=== PATIENT | male | born 1955 | race Caucasian/White ===

== ENCOUNTER 2025-06-10 10:47 | Outpatient (AMB) | payer MEDICARE, OTHER, SELFPAY ==
[2025-06-10 10:49] VITALS: BP 144/82; PULSE 86; O2SAT 97; BMI 34.5
--- NOTE | 2025-06-10 10:49 | A.OFFVIS_ITS ---
Vital Signs 06/10/25 10:49 Height 5 ft 8 in Weight 227 lb 1.218 oz BMI 34.5 BP 144/82 H Blood Pressure Location Lt brachial Position Sitting Pulse 86 Pulse Oximetry (%) 97 Oxygen Delivery Method Room Air Intake Visit Reasons: Atrophy of thyroid Intake Note: New patient externally referred by PCP for Atrophy of Thyroid. Architectural Technologist Required: No Accompanied by: Spouse Allergies No Known Allergies Allergy (Verified 06/10/25 10:55) Medication List - Last Reconciled 06/10/25 by Janes Weber MD aspirin 81 mg PO DAILY coenzyme Q10 (Co Q-10) 10 mg PO TID levothyroxine (Synthroid) 75 mcg PO DAILY multivit with min-folic acid 80 mcg (Centrum MultiGummies Men) 1 tab PO DAILY omeprazole 40 mg PO QAM pravastatin 80 mg PO DAILY valsartan-hydrochlorothiazide 320-12.5 mg 1 tab PO DAILY zinc acetate (Galzin) 25 mg PO DAILY HPI Comments Details: 69 YO Shane is seen in consultation at the request of his PCP for Hyothyroidism. First diagnosed with Hypothyroidism 10 yrs ago with labs revealing hypothyroidism. Currently using levothyroxine 75 ug for 4-5 yrs . Denies +fatigue, +weight gain, -cold intolerance, -dry skin, hair loss, - constipation. There is hx of hyperlipidemia . Denies obstructive sx of goiter . Denies consuming any kelp or seaweed. Denies taking amiodarone. Biotin: N family hx of children - hyperthyroidism and daughter has thyroid cancer - other daughters have Graves and Hashimotos Labs: The patient is a 69-year-old individual presenting for evaluation and management of hypothyroidism. The patient was diagnosed with hypothyroidism approximately 10 years ago and has been on levothyroxine therapy since then. The current dose of levothyroxine is 0.75 mg, which the patient has been taking for the past four to five years. The patient reports difficulty losing weight despite regular exercise and experiences persistent fatigue, which worsened after zac COVID-19. There is no personal history of thyroid nodules or enlargement, and the patient denies any symptoms such as feeling cold, dry skin, or changes in bowel movements. The patient has a significant family history of thyroid disorders, including hyperthyroidism and thyroid cancer in the patient's children. The patient denies any family history of thyroid issues prior to their generation. The patient suspects having sleep apnea due to symptoms of snoring and fatigue, and a sleep study has been recommended. [facility] Medical History (Updated 06/10/25 @ 10:53 by Janes Weber MD) Hypothyroidism Surgical History (Updated 05/28/25 @ 09:44 by RITO Sandoval) Hx of sinus surgery Hx laparoscopic cholecystectomy Hx of arthroscopy of shoulder History of arthroplasty of right knee Family History (Updated 05/28/25 @ 09:46 by RITO Sandoval) Mother No problems noted. Father No problems noted. Social History (Updated 05/28/25 @ 09:45 by RITO Sandoval) Patient Tobacco Use Status: Never used Tobacco Physical Exam Vital Signs: Last Vital Signs Pulse 86 06/10/25 10:49 BP 144/82 H 06/10/25 10:49 Pulse Ox 97 06/10/25 10:49 Oxygen Delivery Method Room Air 06/10/25 10:49 BMI result Body Mass Index 34.5 Const Other: Thyroid gland is normal size weighs about 15 g. 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 He appears to be clinically and biochemically euthyroid on mcg of levothyroxine. Plan is to continue the current therapy. 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 We will check anti-peroxidase antibodies to confirm Joe's thyroiditis. We will also get a thyroid ultrasound in light of the family history of thyroid cancer. If antibodies are negative an ultrasound shows a normal-appearing thyroid, we could consider holding levothyroxine 1. Hypothyroidism The patient will continue on levothyroxine 0.75 mg daily. Thyroid antibodies will be checked to confirm Joe's thyroiditis, and an ultrasound is considered due to family history of thyroid cancer. During the consultation, I discussed the management of hypothyroidism with the patient, emphasizing the importance of maintaining the current levothyroxine dose. We reviewed the potential need for thyroid antibodies testing to confirm Joe's thyroiditis and considered an ultrasound due to the family history of thyroid cancer. I explained the symptoms of post-COVID syndrome and recommended a sleep study to evaluate for sleep apnea, which could be contributing to the patient's fatigue. We also discussed the stability of the patient's hyperlipidemia management with pravastatin. I advised the patient to follow up with their primary care provider for a sleep study referral and to monitor any changes in symptoms. - Continue taking levothyroxine 0.75 mg daily as prescribed. - Schedule a sleep study to evaluate for sleep apnea. - Follow up with primary care provider for further management and monitoring of symptoms. - The patient had an opportunity to ask questions regarding treatment plan. The patient expressed understanding and agreement with the above treatment plan. Patient was informed and verbally consented to the use of an ambient scribe for clinic note documentation during this visit. Orders: Orders US thyroid Today E03.9 - Hypothyroidism, unspecified Thyroid Peroxidase Antibodies Today E03.9 - Hypothyroidism, unspecified Medications: New Synthroid (levothyroxine) 75 mcg PO DAILY 30 tabs 5RF NS Coding Level of Care Code New Pt Level 4 (89008) Diagnoses Hypothyroidism E03.9
--- OUTSIDE RECORDS SUMMARY | 2025-06-10 16:17 | XMS_ITS | Encounter Summary ---
Author Organization [facility] Address [address] [place] [address] Care Team Providers Care Care Administrative Tech Name Role Phone Stephen Moore MD Primary Care Provider [phone] Reason for Referral * Radiology Services - New Request Specialty Diagnoses / Procedures Referred By Contac t Referred To Contact Procedures XR Spine/Sports Interventional Samuel Mccain MD [address] [address] [place] [address] Phone: tel: fax: Referral ID Status Reason Start Date Expiration Date V isits Requested Visits Authorized [id number] New Request 05/06/2025 05/06/2026 1 1 Encounter Details Date Type Department Care Team (Latest Contact Info) Description 05/06/2025 Prep For Surgery [facility] Physical Medicine and Rehabilitation - [facility] [address] [place] [phone] Samuel Mccain MD [address] [id number] [place], [place] [address] Lumbar facet arthropathy Social History Tobacco Use Types Packs/Day Years Used Date Smoking Tobacco: Never Smokeless Tobacco: Never Alcohol Use Standard Drinks/Week Comments Never 0 (1 standard drink = 0.6 oz pur e alcohol) Hunger Vital Sign Answer Date Recorded Within the past 12 months, y ou worried that your food would run out before you got the money to buy more. Never true 04/21/20 25 Within the past 12 months, t he food you bought just didn't last and you didn't have money to get more. Never true 04/21/2025 PRAPARE - Transportation Answer Date Re corded In the past 12 months, has l ack of transportation kept you from medical appointments or from getting medications? No 07/2024 In the past 12 months, has l ack of transportation kept you from meetings, work, or from getting things needed for daily living? No 04/21/2025 Housing Stability Vital Sign Answer Nick e Recorded In the last 12 months, was t here a time when you were not able to pay the mortgage or rent on time? No 04/21/2025 In the past 12 months, how m any times have you moved where you were living? 0 04/21/2025 At any time in the past 12 m onths, were you homeless or living in a nursing home (including now)? No 04/21/2025 Utilities Answer Date Recorded In the past 12 months has th e electric, gas, oil, or water company threatened to shut off services in your home? No 04/21/2025 Sex and Gender Information Value Date Recorded Sex Assigned at Not on file Legal Sex Male 4:02 PM EDT Gender Identity Not on file Sexual Orientation Not on file documented as of this encounter Plan of Treatment Upcoming Encounters Date Type Department Care Team (Late st Contact Info) Description 06/28/2025 11:00 AM EST Office Visit [facility] Orthopedics and Sports Medicine - [place] [id number], [facility] [address] [place] [address] Endy Armendariz MD [address] [place] [address] Scheduled Orders Name Type Priority Associated Diagnoses Order Schedule XR Spine/Sports Interventional Imaging Routine One time imaging for 1 Occurrences starting 05/06/2025 until 05/06/2025 Surgical Case Request: Medial Branch Block Lumbar/Sacral 1st & 2nd level, INJ PARAVERTEBRAL JOINT LUMBAR OR SACRAL 2ND LEVEL Surgical Case Request Routine Lumbar facet arthropathy Once for 1 Occurrences starting 05/06/2025 until 05/06/2025 documented as of this encounter Visit Diagnoses Diagnosis Lumbar facet arthropathy Lumbosacral spondylosis without myelopathy documented in this encounter Care Teams Care Administrative Tech Relationship Specialty Start Date End Date Stephen Moore MD [address] [facility] [address] [facility] [place] [address] PCP - General Family Medicine 04/14/25 documented as of this encounter
--- OUTSIDE RECORDS SUMMARY | 2025-06-10 16:17 | XMS_ITS | Clinical Summary ---
Author Organization [facility] Address [address] [place] [address] Care Team Providers Care Clerical Receptionist Name Role Phone Stephen Moore MD Primary Care Provider [phone] Allergies No known active allergies Medications valsartan-hydro CHLOROthiazide (DIOVAN-HCT) 320-12.5 MG Oral Tablet 1 tablet daily. 03/18/2025 Active montelukast (SINGULAIR) 10 MG Oral Tablet 03/30/2025 Acti ve pravastatin (PRAVACHOL) 80 MG Oral Tablet Take 80 mg by mouth daily. 03/18/2025 Active levothyroxine 75 MCG Oral Tablet Take 75 mcg by mouth. Active traMADol (ULTRAM) 50 MG Oral Tablet Take 1 (one) tablet by mouth every 8 hours as needed for pain. 21 tablet 04/29/2025 Active gabapentin (NEURONTIN) 100 MG Oral Capsule Take 1 (one) capsule by mouth 3 times daily for 30 days. 90 capsule 04/29/2025 Active aspirin 81 MG Oral Tablet Delayed Release by mouth. Acti ve Active Problems Problem Noted Date Diagnosed Date Lumbar facet arthropathy 05/06/2025 Lumbar radiculopathy 04/20/2025 Encounters Date Type Department Care Team Description 05/26/2025 11:30 AM EST - 05/26/2025 12:00 PM EST Surgery [facility] [address] [place] [address] Samuel Mccain MD Medial Branch Block Lumbar/Sacral 1st & 2nd level 05/26/2025 10:33 AM EST - 05/26/2025 12:27 PM EST Hospital Encounter [facility] [address] [place] [address] Samuel Mccain MD Discharge Disposition: Discharge to Home or Self Care 05/26/2025 7:16 AM EST - 05/26/2025 11:59 PM EST Hospital Encounter [facility] -- Fluoroscopy [address] [place] [address] Samuel Mccain MD Discharge Disposition: Discharge to Home or Self Care 05/07/[address] [facility] Physical Medicine and Rehabilitation - [facility] [address] [phone] Samuel Mccain MD Appointment 05/06/2025 Prep For Surgery [facility] Rehabilitation - [place] [phone] Samuel Mccain MD Lumbar facet arthropathy 05/06/2025 Orders Only [facility] Medicine [facility] Rehabilitation - [place] [phone] Samuel Mccain MD 04/29/2025 Telephone [facility] - [place] [address], [address] [place] [phone] Endy Armendariz MD Patient Call 04/29/[address] [facility] Physical Medicine and Rehabilitation - [facility] [address] [place], [place] [phone] Samuel Mccain MD Patient Call; Clinical or Medication Question/Inquiry 04/26/2025 Telephone [facility] - [address] [place] [phone] Endy Armendariz MD Medical Question/Inquiry 04/21/2025 2:30 PM EDT - 04/21/2025 3:00 PM EDT Surgery [facility] [address] [place] [address] Samuel Mccain MD Transforaminal - Lumbar or Sacral multiple levels 04/21/2025 1:34 PM EDT - 04/21/2025 3:44 PM EDT Hospital Encounter [facility] [address] [phone] Samuel Mccain MD Discharge Disposition: Discharge to Home or Self Care 04/21/2025 6:40 AM EDT - 04/21/2025 11:59 PM EDT Hospital Encounter [facility] -- Fluoroscopy [address] [phone] Samuel Mccain MD Discharge Disposition: Discharge to Home or Self Care 04/20/2025 10:00 AM EDT Office Visit [facility] Physical Medicine and Rehabilitation - [facility] [address] [place] [phone] Endy Armendariz MD Guju, Michael M., MD Lumbar facet arthropathy 04/19/2025 10:00 AM EDT Office Visit [facility] [address], [address] [place] [address] Endy Armendariz MD Foraminal stenosis of lumbar region; Lumbar radiculopathy - Left L3 and left L4; Facet arthritis of lumbar region; Chronic back pain greater than 3 months duration 04/15/2025 2:05 PM EDT - 04/15/2025 11:59 PM EDT Hospital Encounter [facility] - RADIOLOGY - MRI [address] [place] [address] Endy Armendariz MD Lumbar spondylosis; Left buttock pain; Facet arthropathy Discharge Disposition: Discharge to Home or Self Care 04/02/2025 11:00 AM EDT Ancillary Procedure [facility] Radiology - [address], [address] [place] [address] Endy Armendariz MD Lumbar spondylosis 04/02/2025 10:45 AM EDT Office Visit [facility] [address], [address] [place] [address] Endy Armendariz MD Lumbar spondylosis; Left buttock pain; Facet arthropathy from Last 3 Months Social History Tobacco Use Types Packs/Day Years Used Date Smoking Tobacco: Never Smokeless Tobacco: Never Tobacco Cessation:Counseling Given: Not Answered Alcohol Use Standard Drinks/Week Comments Never 0 (1 standard drink = 0.6 oz pur e alcohol) Hunger Vital Sign Answer Date Recorded Within the past 12 months, y ou worried that your food would run out before you got the money to buy more. Never true 05/26/20 25 Within the past 12 months, t he food you bought just didn't last and you didn't have money to get more. Never true 05/26/2025 PRAPARE - Transportation Answer Date Re corded In the past 12 months, has l ack of transportation kept you from medical appointments or from getting medications? No 11/2024 In the past 12 months, has l ack of transportation kept you from meetings, work, or from getting things needed for daily living? No 05/26/2025 Housing Stability Vital Sign Answer Nick e Recorded In the last 12 months, was t here a time when you were not able to pay the mortgage or rent on time? No 05/26/2025 In the past 12 months, how m any times have you moved where you were living? 0 05/26/2025 At any time in the past [address] [facility], were you homeless or living in a [place] facility (including now)? No 05/26/2025 Utilities Answer Date Recorded In the past 12 months has th e electric, gas, oil, or water company threatened to shut off services in your home? No 05/26/2025 Sex and Gender Information Value Date Recorded Sex Assigned at Not on file Legal Sex Male 4:02 PM EDT Gender Identity Not on file Sexual Orientation Not on file Last Filed Vital Signs Vital Sign Reading Time Taken Comments Blood Pressure 149/90 05/26/2025 12:07 PM EST Pulse 88 05/26/2025 12:07 PM EST Temperature 36.1 C (97 F) 05/26/2025 12:07 PM EST Respiratory Rate 14 05/26/2025 12:07 PM EST Oxygen Saturation 99% 05/26/2025 12:07 PM EST Inhaled Oxygen Concentration - - Weight 100.2 kg (221 lb) 04/20/2025 10:18 AM EDT Height 172.7 cm (5' 8 ) 04/20/2025 10:18 AM EDT Body Mass Index 33.6 04/20/2025 10:18 AM EDT Plan of Treatment Upcoming Encounters Date Type Department Care Team (Late st Contact Info) Description 06/28/2025 11:00 AM EST Office Visit [facility] Medical [facility] - [place] [address] [place] [address] Endy Armendariz MD [address] [place] [address] Health Maintenance Due Date Last Done Comments CT Colonography 1955 Colonoscopy 1955 Discussion 1955 FIT-Fecal Immunochemical Test 1955 FOBT-Fecal Occult Blood Test 1955 Hepatitis C Screening 1955 Lipid Profile 1955 PSA 1955 Prostate Cancer Screening 1955 Sigmoidoscopy 1955 DTaP,Tdap,and Td Vaccines (1 - Tdap) 1975 Pneumococcal Vaccine (50+ yrs) (1 of 1 - PCV) 2006 Zoster Vaccine (1 of 2) 2006 Medicare Initial AWV [id number] 07/23/2022 SARS-CoV-2 (COVID-19) ( - season) 2025 10/19/2021, 10/27/2020, 10/04/2020 Colon Cancer Screening 10/06/2027 FIT-DNA 10/06/2027 10/05/2024, 08/28/2021 RSV Vaccine (1 - 1-dose 75+ series) 2031 Influenza Vaccine Completed 05/20/2025, , 06/08/2021, Additional history exists HIB Vaccine Aged Out No longer eligi ble based on patient's age to complete this topic HPV Vaccine Aged Out No longer eligi ble based on patient's age to complete this topic Hepatitis A Vaccine Aged Out No longe r eligible based on patient's age to complete this topic Hepatitis B Vaccine Aged Out No longe r eligible based on patient's age to complete this topic Meningococcal ACWY Aged Out No longer eligible based on patient's age to complete this topic Meningococcal B Aged Out No longer el igible based on patient's age to complete this topic Polio Vaccine Aged Out No longer elig ible based on patient's age to complete this topic Rotavirus Vaccine Aged Out No longer eligible based on patient's age to complete this topic Procedures Procedure Name Priority Date/Time Associated Diagnosis Comments FLUORO SPINE/SPORTS INTERVENTIONAL PAIN Routine 05/26/2025 12:04 PM EST MT INJ DX/THER AGNT PARAVERT FACET JOINT, LUMBAR/SAC, 2ND LEVEL 05/26/2025 11:30 AM EST Lumbar facet arthropathy MT INJ DX/THER AGNT PARAVERT FACET JOINT, LUMBAR/SAC, 1ST LEVEL 05/26/2025 11:30 AM EST Lumbar facet arthropathy FLUORO SPINE/SPORTS INTERVENTIONAL PAIN Routine 04/21/2025 3:25 PM EDT MT INJECT ANES/STEROID FORAMEN LUMBAR/SACRAL W IMG GUIDE ,EA ADD LEVEL 04/21/2025 2:30 PM EDT Lumbar radiculopathy MT INJECT ANES/STEROID FORAMEN LUMBAR/SACRAL W IMG GUIDE ,1 LEVEL 04/21/2025 2:30 PM EDT Lumbar radiculopathy MRI SPINE LUMBAR W/O CONTRAST Routine 04/15/2025 2:45 PM EDT Lumbar spondylosis Left buttock pain Facet arthropathy from Last 3 Months Results * Fluoro Spine/Sports Interventional Pain (05/26/2025 12:04 PM EST) Only the most recent of2 resultswithin the time period is included. Impressions RADIOLOGY [facility] - 05/26/2025 3:21 PM EST THIS ORDER IS FOR FLUORO TIME ONLY. THERE IS NO DICTATION. Narrative RADIOLOGY [facility] - 05/26/2025 3:21 PM EST THIS ORDER IS FOR FLUORO TIME ONLY. THERE IS NO DICTATION. us Samuel Mccain MD RAD [place] ORDERABLES Final Re sult RADIOLOGY [facility] * MRI Spine Lumbar w/o Contrast (04/15/2025 2:45 PM EDT) Anatomical Region Laterality Modality Magnetic Resonan ce 04/15/2025 3:30 PM EDT Narrative 04/15/2025 3:30 PM EDT PATIENT: EL YO DATE: 04/15/2025 at 14:16 PROCEDURE: MRI LUMBAR SPINE W/O CONTRAST COMPARISON: None. INDICATIONS: Lumbar spondylosis, Left buttock pain, Facet arthropathy, Low back pain, symptoms persist with > 6 wks treatment TECHNIQUE: Multiplanar multisequence images made. For the purposes of nomenclature of the lumbar vertebral bodies on this exam, they are numbered from L5 upwards, using the morphology of S1 as the reference starting point. FINDINGS: Conus Medullaris: Conus medullaris terminates normally at the level of T12-L1. Vertebral Body Height: Vertebral heights are maintained with no evidence for compression fracture deformity. Vertebral Body Alignment: Grade 1 anterolisthesis of L4 over L5 measures approximately 5 mm. Osseous Structures: Schmorl's node formation identified at the endplates of L2, L3 and L4. Disc Spaces: Decreased T2 hyperintensity at the intervertebral discs of L2-L3, L3-L4 forced L5 represents disc desiccation. Paraspinal Soft Tissues: Unremarkable. T2 hyperintense cystic lesions in the kidneys bilaterally likely represent simple cysts. L1-L2 level: Central canal and neural foramina are patent. L2-L3 level: Central canal and neural foramina are patent. L3-L4 level: Broad-based disc bulge and bilateral posterior facet arthropathy are effacing ventral thecal sac. Mild central spinal canal stenosis measures on 9 mm in AP diameter. Moderate neural foraminal narrowing identified bilaterally at this level. L4-L5 level: Broad-based disc bulge and bilateral posterior facet arthropathy efface the thecal sac. Moderate central spinal canal stenosis measures 7.5 mm in AP diameter. Moderate neural foraminal narrowing identified bilaterally at this level. L5-S1 level: Central canal and neural foramina are patent. IMPRESSION: 1. Multilevel discogenic degenerative changes as described above. 2. Moderate bilateral neural foraminal stenosis at L3-L4 and L4-L5. 3. Grade 1 anterolisthesis at L4-L5 due to bilateral posterior facet arthropathy. 4. Moderate central spinal canal stenosis at L4-L5. 5. Mild central spinal canal stenosis at L3-L4. Dictated by: Lauro Oconnell M.D. on 04/15/2025 at 15:16 Electronically signed on 04/15/2025 at 15:30 Procedure Note Lauro Oconnell MD - 04/15/2025 PATIENT: EL YO DATE: 04/15/2025 at 14:16 PROCEDURE: MRI LUMBAR SPINE W/O CONTRAST COMPARISON: None. INDICATIONS: Lumbar spondylosis, Left buttock pain, Facet arthropathy, Low back pain, symptoms persist with > 6 wks treatment TECHNIQUE: Multiplanar multisequence images made. For the purposes of nomenclature of the lumbar vertebral bodies on this exam, they are numbered from L5 upwards, using the morphology of S1 as the reference starting point. FINDINGS: Conus Medullaris: Conus medullaris terminates normally at the level of T12-L1. Vertebral Body Height: Vertebral heights are maintained with no evidence for compression fracture deformity. Vertebral Body Alignment: Grade 1 anterolisthesis of L4 over L5 measures approximately 5 mm. Osseous Structures: Schmorl's node formation identified at the endplates of L2, L3 and L4. Disc Spaces: Decreased T2 hyperintensity at the intervertebral discs of L2-L3, L3-L4 forced L5 represents disc desiccation. Paraspinal Soft Tissues: Unremarkable. T2 hyperintense cystic lesions in the kidneys bilaterally likely represent simple cysts. L1-L2 level: Central canal and neural foramina are patent. L2-L3 level: Central canal and neural foramina are patent. L3-L4 level: Broad-based disc bulge and bilateral posterior facet arthropathy are effacing ventral thecal sac. Mild central spinal canal stenosis measures on 9 mm in AP diameter. Moderate neural foraminal narrowing identified bilaterally at this level. L4-L5 level: Broad-based disc bulge and bilateral posterior facet arthropathy efface the thecal sac. Moderate central spinal canal stenosis measures 7.5 mm in AP diameter. Moderate neural foraminal narrowing identified bilaterally at this level. L5-S1 level: Central canal and neural foramina are patent. IMPRESSION: 1. Multilevel discogenic degenerative changes as described above. 2. Moderate bilateral neural foraminal stenosis at L3-L4 and L4-L5. 3. Grade 1 anterolisthesis at L4-L5 due to bilateral posterior facet arthropathy. 4. Moderate central spinal canal stenosis at L4-L5. 5. Mild central spinal canal stenosis at L3-L4. Dictated by: Lauro Oconnell M.D. on 04/15/2025 at 15:16 Electronically signed on 04/15/2025 at 15:30 Endy Armendariz MD RAD CF MRI ORDERABLE Final Resu lt from Last 3 Months Insurance MEDICARE PART A AND B [facility] Care Teams Clerical Receptionist Relationship Specialty Start Date End Date Stephen Moore MD [address] [facility] [place] [address] PCP - General Family Medicine 04/14/25
== END 2025-06-10 12:03 | disposition home or self-care (01) ==
LOC: HO.ENCR 10:48
PROVIDERS: Visit Provider Internal Medicine Endocrinology, Diabetes & Metabolism
DX: E03.9 Hypothyroidism, unspecified (principal)
CPT/HCPCS: 99204

== ENCOUNTER 2025-06-10 12:00 | Outpatient (REF) | payer MEDICARE, OTHER, SELFPAY | END 2025-06-10 12:01 | disposition home or self-care (01) | LOC: HO.10HDL 12:00 | PROVIDERS: Visit Provider Internal Medicine Endocrinology, Diabetes & Metabolism | DX: Z01.84 Encounter for antibody response examination (principal); E03.9 Hypothyroidism, unspecified | CPT/HCPCS: 36415; 86376; 99202 ==

== ENCOUNTER 2025-06-21 08:51 | Outpatient (REF) | payer MEDICARE, OTHER, SELFPAY ==
--- NOTE | ~2025-06-21 | XR_ITS ---
Examination: CR Xr Lumbar Spine 4v Min TECHNIQUE: AP, and lateral: Flexion, neutral, and extension view x-rays of the lumbar spine. COMPARISON: None INDICATION: M54.9 - Dorsalgia, unspecified FINDINGS: There are surgical clips in upper quadrant likely related to cholecystectomy. There are mild degenerative changes in the SI joints with narrowing and osteophytes. There are 5 non-rib bearing lumbar segments. T12-L1: There is mild disc space narrowing and endplate osteophytes. L1-L2: There is mild disc space narrowing and minute anterior osteophytes. L2-L3: There is mild disc space narrowing with anterior osteophytes and mild facet sclerosis. L3-L4: There is mild disc space narrowing with endplate osteophytes and facet sclerosis. L4-L5: There is subtle grade 1 anterolisthesis. There is mild disc space narrowing. There are minute endplate osteophytes. There is facet sclerosis. L5-S1: There is minimal disc space narrowing with minute endplate osteophytes and facet sclerosis. With flexion and extension, there is no significant instability. XR/XR lumbar spine 4V min IMPRESSION: Multilevel degenerative disc disease and facet osteoarthritis is most advanced at L3-4 and L4-5. Electronically signed by: Maxim Arroyo MD 06/21/2025 10:17 AM [facility]INIC
== END 2025-06-21 08:52 | disposition home or self-care (01) ==
LOC: HO.HOSX 08:51
PROVIDERS: Visit Provider Physician Assistant
DX: M54.50 Low back pain, unspecified (principal)
CPT/HCPCS: 72110; 99202

== ENCOUNTER 2025-06-21 08:51 | Outpatient (AMB) | payer MEDICARE, OTHER, SELFPAY ==
--- OUTSIDE RECORDS SUMMARY | 2024-10-16 08:45 | XMS_ITS ---
Author Organization [facility] Address [address] [facility] 200 [place], [place] [id number] Care Team Providers Care Glassware Finisher Name Role Phone Stephen Moore Primary Care Provider Allergies No Known Allergies REASON FOR VISIT [...] Problem Body mass index 35.00 to 39.99 ([id number] 105) Body mass index [BMI] 36.0-36.9, adult (Z68.36) Active confirmed Encounters Encounter Location Date Provider Diagnosis [facility] [address] [place], [place] [id number] 10/16/2024 Stephen Moore Encounter for genera l [...] allergic rhinitis (ICD-10 - J30.2) Follows with ram press operator. Recently completed 2 rounds of prednisone. Continue [...] moderation. Other seasonal allergic rhinitis Follows with ram press operator. Recently completed 2 rounds of prednisone. Continue azalastin, singular, flonase and inhaler. Atrophy of thyroid (acquired) Reviewed T hyroid profile and TSH was within the therapeutic range will continue present therapy and refill meds Other Discussed the import ance of yearly Influenza vaccine Next Appt Details Provider Name:Stephen coronado, 06/25/2025 02:30:00 PM, [address], [place], [place], [phone], Provider Name:Stephen coronado, 12/15/2025 02:00:00 PM, [address], [place], [place], [phone], History and Physical Notes * HPI (History [...] EL WOOD IIIDOB: [birth year] (69 yo M)Acc No.[id number]:10/16/2024 progress notes Patient: Mamie CINDI LE Bond III Provider: Elmira Moore MD :1955 A ge:69 Y S ex:Male Date:10/16/2024 Address:[address] [place] [address] Maxwell hawkins [facility] Subjective: * Chief Complaints: * P hysical [...] 16 Gram, Refills 0. Notes: Follows with ram press operator. Recently completed 2 rounds of prednisone. Continue [...] G 0439 ANNUAL WELLNESS VST; PPS SUBSQT [id number] DOC MEDS VERIFIED W/PT OR [id number] NEG SCR D PT NOT ELIG F/U/PLN [id number] Pt scrn tbco id as non [id number] TOBACCO NON-WNCL8544K PT FALLS ASSESS-DOC'D LE/ON1739M FALL RISK ASSESSMENT [id number] MOST RECENT SYSTOLIC BP < 140MM [id number] MOST RECENT DIASTOLIC BP < 90MM OLV5418 ELDER MALTX SCR DOC NEG NO F/U DOIH3445 FLU IMMUNIZE ORDER/[id number] PNEUMOC IMM ORDER/[id number] FXNL STATUS MLUHGTKN1206L COGNIT IMPAIRMENT IPMMMHTX8684B COGNIT ASSESSED AND SUDTLWIS8696S PRES/ABSN URINE INCON MMOBHNU0544 Funct status past 12 tewtxdC4892 CURRENTLY A TOBACCO NON-RGCT0781H LDL-C <100 MG/DL Billing Information: * Procedure [...] Electronic signature of Darryn Moore MD on 06/21/2025 at 09:49 AM EST Sign off status: Pending * Provider: Elmira Moore MD Date: 0 10/16/2024 Generated for Rayray guzman/Beto/Isidraitting on: 1 08/22/2024 09:49 AM EST
--- OUTSIDE RECORDS SUMMARY | 2024-12-01 07:45 | XMS_ITS ---
Author Organization [facility] Address [address] [facility] [address] [place], [place] [phone] Care Team Providers Care Insulator Cutter And Former Name Role Phone Stephen Moore Primary Care Provider Results Component Value Reference Range Flag Notes COMPREHENSIVE METABOLIC CORALE L Reviewed date:12/09/2024 01:26:20 PM Interpretation: Performing Lab:[facility], [facility] [address] [place], [address] Ranjeet Miguel MD Notes/Report: Received Date: [...] Reviewed date:03/31/2025 07:02:10 AM Interpretation: Performing Lab:[facility], [facility] [place], [place], [address] Ranjeet Miguel MD Notes/Report: Received Date: [id number] FASTING:YES AN UPDATE OR CORRECTION HAS BEEN [...] D, (D2,D3), LC/MS/MS is recommended: order code [id number] (patients >2yrs). See Note 1 Note 1 For additional information, please refer to http://Averail.WoraPay/faq/ADG079 (This link is being provided for informational/ educational purposes only.) LIPID PANEL WITH RATIOS Reviewed date:12/09/2024 01:26:20 PM Interpretation: Performing Lab:[facility], [facility] [address] [address], [place], [place], [address] Ranjeet Miguel MD Notes/Report: Received Date: [id number] FASTING:YES FASTING: YES CHOLESTEROL, TOTAL 195 <200 [...] LDL-C. Bo DIAZ et al. DARCY. 2013;310(19): 1157-1962 (http://education.[employer].Athletic Standard/faq/SFE970) CHOL/HDLC RATIO 3.7 <5.0 (calc) N LDL/HDL [...] Reviewed date:03/31/2025 07:02:10 AM Interpretation: Performing Lab:[facility], [address] [place], [place], [address] Ranjeet Miguel MD Notes/Report: Received Date: [id number] FASTING:YES AN UPDATE OR CORRECTION HAS BEEN MADE TO NAME FASTING: YES T3, FREE 3.3 2.3-4.2 pg/mL N HEMOGLOBIN A1c Reviewed date:12/09/2024 01:26:20 PM Interpretation: Performing Lab:[facility], [address], [place], [place], [address] Ranjeet Miguel MD Notes/Report: Received Date: [id number] FASTING:YES FASTING: YES HEMOGLOBIN A1c 6.2 <5.7 [...] Reviewed date:03/31/2025 07:02:10 AM Interpretation: Performing Lab:[facility], [address], [place], [place], [phone] Ranjeet Miguel MD Notes/Report: Received Date: [id number] FASTING:YES AN UPDATE OR CORRECTION HAS BEEN [...] Reviewed date:03/31/2025 07:02:10 AM Interpretation: Performing Lab:[facility]FR[facility], [facility], [facility] [address], [place], [address] Ranjeet Miguel MD Notes/Report: Received Date: [...] 8.5 7.5-12.5 fL N ABSOLUTE NEUTROPHILS 3117 7808-2412 cells/uL N ABSOLUTE LYMPHOCYTES 0076 034-0834 cells/uL N ABSOLUTE MONOCYTES 836 200-950 cells/uL N ABSOLUTE EOSINOPHILS 110 15-500 cells/uL N ABSOLUTE BASOPHILS 49 0-200 cells/uL N NEUTROPHILS 51.1 N LYMPHOCYTES 32.6 N MONOCYTES 13.7 N EOSINOPHILS 1.8 N BASOPHILS 0.8 N T4, FREE Reviewed date:03/31/2025 07:02:10 AM Interpretation: Performing Lab:TP, [facility] [address] [place], [place], [address] Ranjeet Miguel MD Notes/Report: Received Date: FASTING:YES AN UPDATE OR CORRECTION HAS BEEN MADE TO NAME FASTING: YES T4, FREE 1.4 0.8-1.8 ng/dL N TSH Reviewed date:03/31/2025 07:02:10 AM Interpretation: Performing Lab:TP, [facility], [address] [place], [place], [address] Ranjeet Miguel MD Notes/Report: Received Date: FASTING:YES AN UPDATE OR CORRECTION HAS BEEN MADE TO NAME FASTING: YES TSH 1.14 0.40-4.50 mIU/L N REASON FOR VISIT quest Encounters Encounter Location Date Provider Diagnosis [facility] [address] [phone] 12/01/2024 Stephen Moore Mixed hyperlipidemia E78.2 ; Atrophy of thyroid (acquired) E03.4 ; Chronic kidney disease, stage 2 (mild) N18.2 ; Hypertensive chronic kidney disease with stage 1 through stage 4 chronic kidney disease, or unspecified chronic kidney disease I12.9 ; Chronic kidney disease, stage 3a N18.31 ; Prediabetes R73.03 and Other terminal make up operator (current) drug therapy Z79.899 Assessments Encounter Date [...] 12/01/2024 Prediabetes (ICD-10 - R73.03) 12/01/2024 Other terminal make up operator (current) drug therapy (ICD-10 - Z79.899) Plan Of Treatment Pending Test Test Name Order Date CBC (H/H, RBC, INDICES, WBC, PLT) 2024 Next Appt Details Provider Name:Stephen coronado, 06/25/2025 02:30:00 PM, [address] [facility] [address], [place], [place], [phone], Provider Name:Stephen coronado, 12/15/2025 02:00:00 PM, [address] [facility], [place], [place], [phone], Progress Notes * EL WOOD IIIDOB: [birth year] (69 yo M)Acc No.[id number]:12/01/2024 progress notes Patient: Mamie EL PUENTE III Provider: Elmira Moore MD :1955 A ge:69 Y S ex:Male Date:12/01/2024 Address:[address] [place], [place] [phone] Subjective: * Chief Complaints: * Q uest [...] rediabetes - R73.03 7 . O ther usp (current) drug therapy - Z79.899 Plan: * [...] - 12/04/2024 06:34 AM) 5. O ther terminal make up operator (current) drug therapy L AB: CBC (H/H, [...] Date & Time - 03/30/2025 07:09 AM)* [employer] support 03/22 01:42:07 : This order was created by the Interface. ?Lab: URINALYSIS, COMPLETE (Collection Date & Time - 03/30/2025 07:09 AM)* [employer] support 03/22 01:42:08 : This order was created by the Interface. * Electronic signature of Darryn Moore MD on 06/21/2025 at 09:52 AM EST Sign off status: Pending * Provider: Elmira Moore MD Date: 0 12/01/2024 Generated for Rayray guzman/Beto/eTtheodoresmitting on: 1 08/22/2024 09:52 AM EST
--- OUTSIDE RECORDS SUMMARY | 2025-01-06 09:30 | XMS_ITS ---
Author Organization [facility] Address [address] [facility] [address] [place], [place] [phone] Care Team Providers Care Early Intervention Specialist Name Role Phone Stephen Moore Primary Care Provider REASON FOR VISIT CPE Encounters Encounter Location Date Provider Diagnosis [facility] [address] [place], [place] [phone] 01/06/2025 Stephen Moore Plan Of Treatment Next Appt Details Provider Name:Stephen coronado, 06/25/2025 02:30:00 PM, [address] [facility], [place], [place], [phone], Provider Name:Stephen coronado, 12/15/2025 02:00:00 PM, [address] [facility], [place], [place], [phone], Progress Notes * EL WOOD IIIDOB: [birth year] (69 yo M)Acc No.[id number]:01/06/2025 progress notes Patient: Mamie EL PUENTE III Provider: Elmira Moore MD :1955 A ge:69 Y S ex:Male Date:01/06/2025 Address:[address] [place] [address] Subjective: * Chief Complaints: * C PE Billing Information: * Procedure Codes: * Electronic signature of Darryn Moore MD on 06/21/2025 at 09:52 AM EST Sign off status: Pending * Provider: Elmira Moore MD Date: 0 01/06/2025 Generated for Rayray guzman/Beto/Ganesh on: 1 08/22/2024 09:52 AM EST
--- NOTE | 2025-06-21 08:55 | A.SPINEOV_ITS ---
Vital Signs 06/21/25 09:00 Height 5 ft 8 in Weight 220 lb BMI 33.4 Intake Visit Reasons: LBP Intake Note: Mr. Yo is here today c/o low back pain. MRI done at [place]. [employer] Artist Required: No Allergies No Known Allergies Allergy (Verified 06/21/25 09:01) Physical Exam Vital Signs: BMI result Body Mass Index 33.4 Assessment & Plan Assessment & Plan (1) Back pain: Code(s): M54.9 - Dorsalgia, unspecified Category: Medical Plan This is a very nice 69-year-old gentleman self-referred comes in today for evaluation of 2 distinct and separate problems. The 1st is that he has had a chronic low back pain for years. He actually describes it as stiffness in his low back rather than painful. He has dealt with this using anti-inflammatories, and cortisone injections. He even ultimately underwent a radiofrequency ablation of the facets at L4-5 and had about 6 months of good relief. Unfortunately the symptoms came back. He has undergone epidural injections since then and as usual they helped for very short period of time and then wear off. The pain is not debilitating. He normally walks extended mileage every day, 6 miles or more in fact and the back pain would bother him but would not incapacitated him. He would be able to ride his motorcycles as well with some discomfort but manageable. Recently a 2nd problem popped up. He had been having very focal pain over his lateral hip region on both sides for awhile, but it was very manageable and really not bothersome enough to stop him from doing anything. For whatever reason in January when he had COVID, the intensity of this pain escalated significantly. He underwent a series of cortisone injections directly into the hip joint where it hurt but nothing happens or improve. This pain is incapacitating to the degree where he has had to stop doing his daily walks. It does not necessarily come on or as directly associated with the back pain. He will have it at night when he is lying down as well and will toss and turn [id number]. He was seen by a surgeon in [place] with an MRI done showing facet arthropathy at L4-5 with a grade 1 spondylolisthesis with moderate stenosis and was offered what sounds like a posterior lumbar interbody fusion. The patient came to see us for 2nd opinion. He has not done any physical the rapy yet at this point. He has not chiropractors. In terms of pain control, he does not really like taking pills so he is not taking any medication at all currently. He had hip x-rays and was told they were negative for any advanced arthritis. PMH: He is reasonably healthy, recently diagnosed with prostate cancer, it is contained within the prostate and he will undergo radiation treatment shortly. History of high blood pressure which is well controlled, hypothyroidism. He did have an issue with his kidneys at 1 point because he was overdoing it with ibuprofen but that has since resolved. He has had surgery on both hands, right knee surgery, right shoulder surgery, sinus surgery and cholecystectomy. Denies any cardiopulmonary disease, liver disease, bleeding disorders, blood clots, unusual infections or other metabolic disorders. Social hx: He does not smoke, drink use any recreational drugs Medications: Valsartan, hydrochlorothiazide, Singulair, pravastatin, Prilosec and Synthroid Allergies: None Physical exam: Awake alert oriented no acute distress, able to stand up independently walk in the hallway on his own. He has focal tenderness right over the greater trochanter of the left hip. No focal strength loss in the lower extremities, but does have pain with hip flexion enough that he will grimace when I give him motor resistance. The pain is in the local left hip region. Decreased range of motion of the hips bilaterally. Reflexes slightly brisk in the right patella and right Achilles. Imaging review: Lumbar MRI done in [place] brought on a disc, shows that he has a subtle grade 1 spondylolisthesis at L4-5, he does have fairly advanced facet arthropathy that looks arthritic. There is no significant hyperintensity within the joint itself. There is moderate stenosis of the central canal. Impression: 69-year-old gentleman presents for evaluation of 2 separate issues. He has a chronic low back pain which has been fairly manageable through the years with injections and radiofrequency ablation of the facets. He has a grade 1 spondylolisthesis and facet arthropathy. I think the facets are the source of his pain as he did have great relief after the radiofrequency ablation. It only lasted 6 or 8 months. The issue there is really bothering him however, is a bilateral hip pain left greater than right which started after he had COVID in January. He had a small amount of this prior to getting COVID but really it was not limiting him at all. But now it is the main thing that keeps him from being able to take as long daily walks and rides his motorcycle. It is associated with activity, but however is also there at nighttime when he is turning on his side. He has focal tenderness over the lateral hip region and very limited range of motion of his hips. He does not have any pain radiating down into his legs with tingling numbness etc.. He has been offered what sounds like a posterior lumbar interbody fusion by a surgeon in [place]. I am not sure of the exact indication for the surgery. This seems like a fairly drastic step given that the gentleman has only had the pain now for 3 or 4 months in his hips and it does not necessarily always come on with walking. As outlined in his associated with low when he lays down at night and turning over on his side. It does not radiate down his legs, and does not necessarily always go away when he sits down. It can also be aggravated when he sitting for too long. I can not be 100% sure based on this store that this is coming from the central stenosis. He did have an epidural in the interim from January when this all started in the hips and it did not help the hip pain. It did help the back pain as per usual. But again the back pain is not the thing that is disabling him. It is the hip pain. I think we should take a step back and pause when talking about surgery at this point because the story is not prototypical of stenosis. I told him we should at least start with some physical therapy because the insurance company would require that before surgery anyway. I will also get a set of standing flexion-extension x-rays to rule out occult instability. I would like to see him back in 2 months after PT is completed and i will review his case with Dr pereira. Thank you for allowing us to care for your patient. The total time spent with this visit with this patient was 45 minutes reviewing history, physical exam, lumbar imaging review, and implementation of treatment plan or further diagnostic testing Samuel Pereira MD,PhD [facility] Orders: Orders PT Evaluation and Treatment Today M54.9 - Dorsalgia, unspecified XR lumbar spine 4V min Today M54.9 - Dorsalgia, unspecified Coding Level of Care Code New Pt Level 4 (30879) Diagnoses Back pain M54.9
[2025-06-21 09:00] VITALS: BMI 33.4
--- OUTSIDE RECORDS SUMMARY | 2025-06-21 09:49 | XMS_ITS | Encounter Summary ---
Author Organization [facility] Address [address] [place] [address] Care Team Providers Care Sack Maker Name Role Phone Stephen Moore MD Primary Care Provider [phone] Reason for Referral * Radiology Services - New Request Specialty Diagnoses / Procedures Referred By Contac t Referred To Contact Procedures XR Spine/Sports Interventional Samuel Mccain MD [address] [address] [place] [address] Phone: tel: fax: Referral ID Status Reason Start Date Expiration Date V isits Requested Visits Authorized [id number] New Request 05/06/2025 05/06/2026 1 1 Encounter Details Date Type Department Care Team (Latest Contact Info) Description 05/06/2025 Prep For Surgery [facility] - [facility] [[email or web address] [address] [place] [id number] Samuel Mccain MD [address] [id number] [place], [place] [id number] Lumbar facet arthropathy Social History Tobacco Use [...] were you homeless or living in a fdc (including now)? No 04/21/2025 Utilities Answer Date [...] Description 06/28/2025 11:00 AM EST Office Visit [facility] - [place] [address], [facility] [address] [place] [address] Endy Armendariz MD [address] [place] [address] Scheduled Orders Name Type Priority [...] myelopathy documented in this encounter Care Teams Sack Maker Relationship Specialty Start Date End Date Stephen Moore MD [address] [facility] [address] [facility] [place] [address] PCP - General Family Medicine 04/14/25 documented as of this encounter
--- OUTSIDE RECORDS SUMMARY | 2025-06-21 09:49 | XMS_ITS | Patient Health Record ---
Author Organization [facility] Address [address] [place] [address] Care Team Providers Care Insurance Marketing Rep Name Role Phone Stephen Moore Primary Care Provider Unavailab justen HUBBARD ROSSTANIAELBERT Unavailable [phone] MoizDARBY miller APRN Unavailable Allergies No Known Allergies Reason For Referral No Information Medications Medication SIG (Take, Route, Frequency, Duration) Notes Start Date End Date Status Azelastine HCl 137 MCG/SPRAY Solution USE 2 SPRAYS INTO EACH NOSTRIL TWICE A DAY Nasal; Duration: 25 Days Unknown Synthroid 75 MCG Tablet TAKE 1 TABLET EV JAYLA MORNINGON AN EMPTY STOMACH Oral; Duration: 90 Days Unknown Omeprazole 40 MG Capsule Delayed Release TAKE 1 CAPSULE ONCE DAILY 30 MINUTES BEFORE MORNING MEAL Oral; Duration: 90 Days Unknown Tamsulosin HCl 0.4 MG Capsule TAKE 1 CAPSULE ONCE DAILY 30 MINUTES AFTER THE SAME MEAL EACH DAY Oral; Duration: 90 Days Unknown Valsartan-hydroCHLOROthiaz max 320-12.5 MG Tablet Oral; Duration: 90 Days Unknown Pravastatin Sodium 80 MG Tablet TAKE 1 TABLET DAILY Oral; Duration: 90 Days Unknown Montelukast Sodium 10 MG Tablet TAKE 1 TABLET DAILY Oral; Duration: 90 Days Unknown Gabapentin 100 MG Capsule TAKE 1 CAPSULE BY MOUTH THREE TIMES A DAY Oral; Duration: 30 Days Unknown Fenofibrate 145 MG Tablet Oral; Duration: 90 Days Unknown ALPRAZolam 1 MG Tablet TAKE 1 TABLET BY MOUTH EVERY DAY NEEDED FOR ANXIETY Oral; Duration: 30 Days Unknown Social History Tobacco Use: Social History Observation Description Date Details (start date - stop date) Never Smoker NA - NA Social History Drug/Alcohol: Social Info Question Answer Notes Drugs Have you used drugs other than those for medical reasons in the past 12 months? No SOAPP-R Score: (Screener & Opioid Assessment for Patients with Pain-Revised Score) Score 2 (Low risk) Caffeine Intake: 3-4 cups per day Tobacco Use: Social Info Question Answer Notes Tobacco Control (Standard) Tobacco use: Nonsmoker Additional Details Category Social Info Options Details Drug/Alcohol: Do you smoke marijuana? Den ies, Denies Do you drink alcohol? Socially, Socially, Socially, Socially Problems Problem Type SNOMED Code ICD Code Onset Dates Problem Status W/U Status Risk Notes Problem Chronic pain syndrome (010687061) Chronic pain syndrome (G89.4) Active confirmed Problem Acquired spondylolisthesis (394861803) Spondylolysis, cervical region (M43.02) Active confirmed Problem Cervical spondylosis without myelopathy (893086845) Other spondylosis with radiculopathy, cervical region (M47.22) Active confirmed Problem Cervical radiculopathy (94221821) Cervical disc disorder with radiculopathy, unspecified cervical region (M50.10) Active confirmed Problem Displacement of lumbar intervertebral disc without myelopathy (27183976) Other intervertebral disc displacement, lumbar region (M51.26) Active confirmed Problem Lumbar radiculopathy (724217402) Radiculopathy, lumbar region (M54.16) Active confirmed Problem Cervicalgia (21700074) Cervicalgia (M54.2) Active confirmed Problem Spinal stenosis of lumbar region (56880215) Spinal stenosis, lumbar region without neurogenic claudication (M48.061) Active confirmed Problem Lumbar spondylosis (617249253) Lumbar spondylosis (M47.816) Active confirmed Problem Cervical spondylosis (303110331) Cervical spondylosis (M47.812) Active confirmed Problem Lumbosacral spondylosis without myelopathy (95135994) DJD (degenerative joint disease), lumbosacral (M47.817) Active confirmed Problem Lumbosacral spondylosis without myelopathy (01336241) Spondylosis of lumbosacral spine without myelopathy (M47.817) Active confirmed Problem Trochanteric bursitis of left hip (611485512519962) Trochanteric bursitis of left hip (M70.62) Active confirmed Vital Signs Heart Rate 78 /min 03/29/2025 Temperature 97.5 degrees Fahrenheit 03/29/2025 Height-cm 172.72 cm 03/29/2025 Oximetry 97 % 03/29/2025 Blood pressure diastolic 93 mm Hg 03/29/2025 Weight-kg 90.72 kg 03/29/2025 Height 68 in 03/29/2025 Blood pressure systolic 147 mm Hg 03/29/2025 Weight 200 lbs 03/29/2025 BMI 30.41 kg/m2 03/29/2025 Encounters Encounter Location Date Provider Diagnosis [facility] [address] [place] [address] 08/25/2024 DARBY Moizow DJD (degenerative joint disease), lumbosacral M47.817 ; Cervical spondylosis M47.812 ; Trochanteric bursitis of left hip M70.62 and Chronic pain syndrome G89.4 [facility] [address] [place] [address] [address] [place] [address] 08/26/2024 CHAYAPATHY JOLLU Other spondylosis with radiculopathy, cervical region M47.22 ; Cervical spondylosis M47.812 ; Cervical disc disorder with radiculopathy, unspecified cervical region M50.10 and Cervicalgia M54.2 [facility] [address] [place] [address] [address] [place] [address] 09/29/2024 CHAYAPATHY JOLLU DJD (degenerative joint disease), lumbosacral M47.817 ; Cervical spondylosis M47.812 ; Trochanteric bursitis of left hip M70.62 ; Chronic pain syndrome G89.4 ; Lumbar spondylosis M47.816 and Spondylosis of lumbosacral spine without myelopathy M47.817 [facility] [address] [place] [address] 10/13/2024 CHAYAPATHY JOLLU Facet arthropathy, lumbosacral M47.817 and Lumbar facet arthropathy M47.816 [facility] [address] [place] [address] [address] [place] [address] 10/27/2024 CHAYAPATHY JOLLU Facet arthropathy, lumbosacral M47.817 and Lumbar facet arthropathy M47.816 [facility] [address] [place] [address] [address] [place] [address] 11/18/2024 DARBY Rockafellow DJD (degenerative joint disease), lumbosacral M47.817 ; Lumbar spondylosis M47.816 ; Cervical spondylosis M47.812 ; Trochanteric bursitis of left hip M70.62 ; Chronic pain syndrome G89.4 and Trochanteric bursitis, left hip M70.62 [facility] [address] [place] [address] [address] [place] [address] 11/25/2024 CHAYAPATHY JOLLU Cervicalgia M54.2 an d Cervical spondylosis M47.812 [facility] [address] [place] [address] [address] [place] [address] 12/09/2024 CHAYAPATHY JOLLU Facet arthropathy, lumbosacral M47.817 and Lumbar facet arthropathy M47.816 [facility] [address] [place] [address] [address] [place] [address] 01/25/2025 CHAYAPATHY JOLLU Lumbar spondylosis M47.816 ; Lumbar disc disease with radiculopathy M51.16 ; DJD (degenerative joint disease), lumbosacral M47.817 ; Cervical spondylosis M47.812 ; Trochanteric bursitis of left hip M70.62 ; Chronic pain syndrome G89.4 and Trochanteric bursitis, left hip M70.62 [facility] [address] [place] [address] [address] [place] [address] 02/01/2025 CHAYAPATHY JOLLU Radiculopathy, lumba r region M54.16 and Other intervertebral disc displacement, lumbar region M51.26 [facility] [address] [place] [address] [address] [place] [address] 03/29/2025 [facility] Lumbar spondylosis M47.816 ; Lumbar disc disease with radiculopathy M51.16 ; DJD (degenerative joint disease), lumbosacral M47.817 ; Cervical spondylosis M47.812 ; Trochanteric bursitis of left hip M70.62 ; Chronic pain syndrome G89.4 and Trochanteric bursitis, left hip M70.62 [facility] [address] [place] [address] [address] [place] [address] 12/17/2024 CHAYAPATHY JOLLU [facility] [address] [place] [address] [address] [place] [address] 11/24/2024 ROSSYAPATHY HAYDEE [facility] [address] [place] [address] 12/21/2024 ROSSYAPATHY HAYDEE [facility] [address] [place] [address] 03/29/2025 ROSSYAPATHY HAYDEE Assessments Encounter Date Diagnosis (ICD Code) Assessment Notes Treatment Notes Treatment Clinical Notes Section Notes 08/25/2024 Cervical spondylosis (ICD-10 - M47.812) Schedule for B/L C4/5 and C5/6 FJNB Rizhotomy of the Left C4-5 and C5-6 facet joint nerves : 10/11/23 08/25/2024 DJD (degenerative joint disease), lumbosacral (ICD-10 - M47.817) Bilateral L4- L5 and L5- S1 Facet Joint median nerve rhizotomy : 07/28/24 08/26/2024 Other spondylosis with radiculopathy, cervical region (ICD-10 - M47.22) 08/26/2024 Cervical spondylosis (ICD-10 - M47.812) 09/29/2024 Cervical spondylosis (ICD-10 - M47.812) Schedule for B/L C4/5 and C5/6 FJNB Rizhotomy of the Left C4-5 and C5-6 facet joint nerves : 10/11/23 09/29/2024 DJD (degenerative joint disease), lumbosacral (ICD-10 - M47.817) Bilateral L4- L5 and L5- S1 Facet Joint median nerve rhizotomy : 07/28/24 10/13/2024 Facet arthropathy, lumbosacral (ICD-10 - M47.817) 10/27/2024 Facet arthropathy, lumbosacral (ICD-10 - M47.817) 11/18/2024 Lumbar spondylosis (ICD-10 - M47.816) 11/18/2024 DJD (degenerative joint disease), lumbosacral (ICD-10 - M47.817) Discussed Bilateral L4- L5 and L5- S1 Facet Joint median nerve rhizotomy Bilateral L4- L5 and L5- S1 Facet Joint median nerve rhizotomy : 07/28/24 Bilateral L4- L5 and L5- S1 FJNB: 10/13/24, 10/27/2024 11/25/2024 Cervicalgia (ICD-10 - M54.2) 11/25/2024 Cervical spondylosis (ICD-10 - M47.812) 12/09/2024 Facet arthropathy, lumbosacral (ICD-10 - M47.817) 01/25/2025 Lumbar spondylosis (ICD-10 - M47.816) 01/25/2025 Lumbar disc disease with radiculopathy (ICD-10 - M51.16) Schedule for lumbar epidural steroid injection at L4-5 level alma. 02/01/2025 Other intervertebral disc displacement, lumbar region (ICD-10 - M51.26) 02/01/2025 Radiculopathy, lumbar region (ICD-10 - M54.16) 03/29/2025 Lumbar spondylosis (ICD-10 - M47.816) 03/29/2025 Lumbar disc disease with radiculopathy (ICD-10 - M51.16) MRI Lum[facility] spine [facility] at [facility] Will be seeing Spine Surgeon at [facility] Saturday at 1045am L4/5 Lumbar DEBORAH: 02/01/2025 01/25/2025 DJD (degenerative joint disease), lumbosacral (ICD-10 - M47.817) Discussed Bilateral L4- L5 and L5- S1 Facet Joint median nerve rhizotomy Bilateral L4- L5 and L5- S1 Facet Joint median nerve rhizotomy : 07/28/24 Bilateral L4- L5 and L5- S1 FJNB: 10/13/24, 10/27/2024 12/09/2024 Lumbar facet arthropathy (ICD-10 - M47.816) 11/18/2024 Cervical spondylosis (ICD-10 - M47.812) Schedule for B/L C4/5 and C5/6 FJNB Rizhotomy of the Left C4-5 and C5-6 facet joint nerves : 10/11/23 Bilateral C4/5, C5/6Facet joint nerve block: 08/26/2024 10/27/2024 Lumbar facet arthropathy (ICD-10 - M47.816) 10/13/2024 Lumbar facet arthropathy (ICD-10 - M47.816) 09/29/2024 Trochanteric bursitis of left hip (ICD-10 - M70.62) Left trochanteric bursa injection was done in the office today. Left Trochanteric bursa inj: 06/23/24 08/26/2024 Cervical disc disorder with radiculopathy, unspecified cervical region (ICD-10 - M50.10) 08/25/2024 Trochanteric bursitis of left hip (ICD-10 - M70.62) Left Trochanteric bursa inj: 06/23/24 08/26/2024 Cervicalgia (ICD-10 - M54.2) 09/29/2024 Chronic pain syndrome (ICD-10 - G89.4) Controlled substance agreement on file [facility] reviewed and nothing unexpected found Pertinent radiology studies as listed in note reviewed Notes and labs from referring provider reviewed Continue home exercises and stretching as instructed Continue OTC pain relievers, creams, and patches Follow-up with PCP 08/25/2024 Chronic pain syndrome (ICD-10 - G89.4) Controlled substance agreement on file [place] reviewed and nothing unexpected found Pertinent radiology studies as listed in note reviewed Notes and labs from referring provider reviewed Continue home exercises and stretching as instructed Continue OTC pain relievers, creams, and patches Follow-up with PCP 11/18/2024 Trochanteric bursitis of left hip (ICD-10 - M70.62) Left Trochanteric bursa inj: 06/23/24 01/25/2025 Cervical spondylosis (ICD-10 - M47.812) Schedule for B/L C4/5 and C5/6 FJNB Rizhotomy of the Left C4-5 and C5-6 facet joint nerves : 10/11/23 Bilateral C4/5, C5/6Facet joint nerve block: 08/26/2024 03/29/2025 DJD (degenerative joint disease), lumbosacral (ICD-10 - M47.817) Discussed Bilateral L4- L5 and L5- S1 Facet Joint median nerve rhizotomy Bilateral L4- L5 and L5- S1 Facet Joint median nerve rhizotomy : 07/28/24 Bilateral L4- L5 and L5- S1 FJNB: 10/13/24, 10/27/2024 03/29/2025 Cervical spondylosis (ICD-10 - M47.812) Schedule for B/L C4/5 and C5/6 FJNB Rizhotomy of the Left C4-5 and C5-6 facet joint nerves : 10/11/23 Bilateral C4/5, C5/6Facet joint nerve block: 08/26/2024 01/25/2025 Trochanteric bursitis of left hip (ICD-10 - M70.62) Left Trochanteric bursa inj: 06/23/24 11/18/2024 Chronic pain syndrome (ICD-10 - G89.4) Controlled substance agreement on file [employer] reviewed and nothing unexpected found Pertinent radiology studies as listed in note reviewed Notes and labs from referring provider reviewed Continue home exercises and stretching as instructed Continue OTC pain relievers, creams, and patches Follow-up with PCP 09/29/2024 Lumbar spondylosis (ICD-10 - M47.816) Schedule for bilateral lumbar facet joint nerve blocks at L4-5/ L5-S1 alma 09/29/2024 Spondylosis of lumbosacral spine without myelopathy (ICD-10 - M47.817) 01/25/2025 Chronic pain syndrome (ICD-10 - G89.4) Controlled substance agreement on file [employer] reviewed and nothing unexpected found Pertinent radiology studies as listed in note reviewed Notes and labs from referring provider reviewed Continue home exercises and stretching as instructed Continue OTC pain relievers, creams, and patches Follow-up with PCP 03/29/2025 Trochanteric bursitis of left hip (ICD-10 - M70.62) Left Trochanteric bursa inj: 06/23/24 01/25/2025 Trochanteric bursitis, left hip (ICD-10 - M70.62) 03/29/2025 Chronic pain syndrome (ICD-10 - G89.4) Controlled substance agreement on file [facility] reviewed and nothing unexpected found Pertinent radiology studies as listed in note reviewed Notes and labs from referring provider reviewed Continue home exercises and stretching as instructed Continue OTC pain relievers, creams, and patches Follow-up with PCP 11/18/2024 Trochanteric bursitis, left hip (ICD-10 - M70.62) 03/29/2025 Trochanteric bursitis, left hip (ICD-10 - M70.62) Plan Of Treatment Future Test Test Name Order Date MRI : Lumbar without contrast (CPT: 7214 8) 03/29/2025 Insurance Providers Payer Name Payer Address Payer Phone Subscriber Number Group Number Insured Name Patient Relationship to Insured Coverage Start Date Coverage End Date [employer] [place] [employer] [address] [address] [place], [place] [id number] Santhosh Yo Self - patient is the insured [facility] [address] [place] [address] [phone] [id number] Santhosh Yo Self - patient is the insured Medical (General) History Medical History History ICD Code DJD HTN HLD Depression Hypothyroid Foot Drop Surgical History Surgery Date(Month/Year) Arthroscopy of Right shoulder & right kn ee, sinus
== END 2025-06-21 10:16 | disposition home or self-care (01) ==
LOC: HO.HNS 08:51
PROVIDERS: Visit Provider Physician Assistant
DX: M54.9 Dorsalgia, unspecified (principal)
CPT/HCPCS: 99204

== ENCOUNTER → 2025-06-21 09:56 | Outpatient (BNV) | payer MEDICARE, OTHER, SELFPAY | PROVIDERS: Visit Provider Radiology Diagnostic Radiology | DX: M51.360 Other intervertebral disc degeneration, lumbar region with discogenic back pain only (principal); M47.816 Spondylosis without myelopathy or radiculopathy, lumbar region | CPT/HCPCS: 72110 ==

== ENCOUNTER 2025-06-23 15:05 | Outpatient (REF) | payer MEDICARE, OTHER, SELFPAY ==
--- OUTSIDE RECORDS SUMMARY | 2024-03-26 07:30 | XMS_ITS ---
Author Organization [facility] Address [address] 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 Name Role Phone Stephen Moore Primary Care Provider [facility] treviñoalisha Unavailable [phone] Results Component Value Reference Range Flag Notes TSH+Free T4 Reviewed date:03/29/2024 01:12:26 PM Interpretation: Performing Lab:[facility] [address] [id number], Phone - [phone], Director - MDJodry Notes/Report: TSH 4.170 0.450-4.500 uIU/mL T4,Free(Direct) 1.47 0.82-1.77 ng/dL Hemoglobin A1c Reviewed date:03/29/2024 01:12:26 PM Interpretation: Performing Lab:[facility] [address] [id number], Phone - [phone], Director - MDJodry Notes/Report: Hemoglobin A1c 6.4 4.8-5.6 % H . Prediabetes: 5.7 - 6.4 Diabetes: >6.4 Glycemic control for adults with diabetes: <7.0 Triiodothyronine,Free,Serum Reviewed date:03/29/2024 01:12:26 PM Interpretation: Performing Lab:[facility] [address] [place] [id number], Phone - [phone], Director - MDJodry Notes/Report: Triiodothyronine (T3), Free 3.1 2.0-4.4 pg/mL Vitamin D, 25-Hydroxy Reviewed date:03/29/2024 01:12:26 PM Interpretation: Performing Lab:[facility], [address] [place], [place] [id number], Phone - [phone], Director - Reynaldo Notes/Report: Vitamin D, 25-Hydroxy 30.0 30.0-100.0 ng/mL Vitamin D deficiency has been defined by the Freedom of Medicine and an Endocrine Society practice guideline as a level of serum 25-OH vitamin D less than 20 ng/mL (1,2). The Endocrine Society went on to further define vitamin D insufficiency as a level between 21 and 29 ng/mL (2). 1. IOM (Freedom of Medicine). 2010. Dietary reference intakes for calcium and D. [place]: The National Academies Press. 2. Staci MF, Stefany MCKINNON, Yusef PARK, et al. Evaluation, treatment, and prevention of vitamin D deficiency: an Endocrine Society clinical practice guideline. JCEM. 2010; 96(7):1911-30. Lipid Panel w/ Chol/HDL Rati o [id number] Reviewed date:03/29/2024 01:12:26 PM Interpretation: Performing Lab:[facility], [address] [place], [place] [id number], Phone - [phone], Director - Reynaldo Notes/Report: Cholesterol, Total 138 100-199 mg/dL Triglycerides 86 0-149 mg/dL HDL Cholesterol 41 >39 mg/dL VLDL Cholesterol Brad 17 5-40 mg/dL LDL Chol Calc (NIH) 80 0-99 mg/dL T. Chol/HDL Ratio 3.4 0.0-5.0 ratio T. Chol/HDL Ratio Men Women 1/2 Avg.Risk 3.4 3.3 Avg.Risk 5.0 4.4 2X Avg.Risk 9.6 7.1 3X Avg.Risk 23.4 11.0 Comp. Metabolic Panel (14) Reviewed date:03/29/2024 01:12:26 PM Interpretation: Performing Lab:[facility], [address] [place], [place] [id number], Phone - [phone], Director - Reynaldo Notes/Report: Glucose 120 70-99 mg/dL H BUN 26 8-27 mg/dL Creatinine 1.41 0.76-1.27 mg/dL H eGFR 55 >59 mL/min/1.73 L BUN/Creatinine Ratio 18 10-24 Sodium 139 134-144 mmol/L Potassium 4.6 3.5-5.2 mmol/L Chloride 103 96-106 mmol/L Carbon Dioxide, Total 22 20-29 mmol/L Calcium 10.1 8.6-10.2 mg/dL Protein, Total 7.3 6.0-8.5 g/dL Albumin 4.5 3.9-4.9 g/dL Globulin, Total 2.8 1.5-4.5 g/dL Bilirubin, Total 0.4 0.0-1.2 mg/dL Alkaline Phosphatase 29 44-121 IU/L L AST (SGOT) 22 0-40 IU/L ALT (SGPT) 21 0-44 IU/L CBC With Differential/Platel et Reviewed date:03/29/2024 01:12:26 PM Interpretation: Performing Lab:[facility], [address] [place] [id number], Phone - [phone], Director - Reynaldo Notes/Report: WBC 5.5 3.4-10.8 x10E3/uL RBC 4.19 4.14-5.80 x10E6/uL Hemoglobin 12.4 13.0-17.7 g/dL L Hematocrit 38.4 37.5-51.0 % MCV 92 79-97 fL MCH 29.6 26.6-33.0 pg MCHC 32.3 31.5-35.7 g/dL RDW 12.1 11.6-15.4 % Platelets 367 150-450 x10E3/uL Neutrophils 47 Not Estab. % Lymphs 35 Not Estab. % Monocytes 14 Not Estab. % Eos 3 Not Estab. % Basos 1 Not Estab. % Neutrophils (Absolute) 2.6 1.4-7.0 x10E3/uL Lymphs (Absolute) 1.9 0.7-3.1 x10E3/uL Monocytes(Absolute) 0.8 0.1-0.9 x10E3/uL Eos (Absolute) 0.2 0.0-0.4 x10E3/uL Baso (Absolute) 0.0 0.0-0.2 x10E3/uL Immature Granulocytes 0 Not Estab. % Immature Grans (Abs) 0.0 0.0-0.1 x10E3/uL REASON FOR VISIT send to [facility] Encounters Encounter Location Date Provider Diagnosis [facility] [address] [facility] [address] [place], [place] [id number] 03/26/2024 Ignacio Moore Mixed hyperlipidemia E78.2 ; Atrophy of thyroid (acquired) E03.4 ; Gastro-esophageal reflux disease without esophagitis K21.9 ; Vitamin D deficiency, unspecified E55.9 ; Chronic kidney disease, stage 3a N18.31 ; Hypertensive chronic kidney disease with stage 1 through stage 4 chronic kidney disease, or unspecified chronic kidney disease I12.9 and Prediabetes R73.03 Assessments Encounter Date Diagnosis (ICD Code) Assessment Notes Treatment Notes Treatment Clinical Notes Section Notes 03/26/2024 Mixed hyperlipidemia (ICD-10 - E78.2) 03/26/2024 Atrophy of thyroid (acquired) (ICD-10 - E03.4) 03/26/2024 Gastro-esophageal reflux disease without esophagitis (ICD-10 - K21.9) 03/26/2024 Vitamin D deficiency, unspecified (ICD-10 - E55.9) 03/26/2024 Chronic kidney disease, stage 3a (ICD-10 - N18.31) 03/26/2024 Hypertensive chronic kidney disease with stage 1 through stage 4 chronic kidney disease, or unspecified chronic kidney disease (ICD-10 - I12.9) 03/26/2024 Prediabetes (ICD-10 - R73.03) Plan Of Treatment Next Appt Details Provider Name:Stephen coronado, 06/25/2025 02:30:00 PM, [address] [facility] [address], [place], [place], [phone], Provider Name:Stephen Beth ivonne, 12/15/2025 02:00:00 PM, [address] [facility] [address], [place], [place], [phone], Progress Notes * EL WOOD IIIDOB: [birth year] (69 yo M)Acc No.[id number]:03/26/2024 progress notes Patient: EL HILL III Provider: Noni Moore MD :[id number] A ge:68 Y S ex:Male Date:03/26/2024 Address:[address] [place] [address] [id number] Pcp:Stephen Moore Subjective: * Chief Complaints: * S end to [facility] Assessment: * Assessment: 1. M ixed hyperlipidemia - E78.2 2 . A trophy of thyroid (acquired) - E03.4? 3. G gardenia-esophageal reflux disease without esophagitis - K21.9 ?4. V itamin D deficiency, unspecified - E55.9 5 . C hronic kidney disease, stage 3a - N18.31 6 . H ypertensive chronic kidney disease with stage 1 through stage 4 chronic kidney disease, or unspecified chronic kidney disease - I12.9 7 .?Prediabetes - R73.03 Plan: * Treatment: 2. A trophy of thyroid (acquired) L AB: TSH+Free T4 (Collection Date & Time - 03/27/2024 08:22 AM) L AB: Triiodothyronine,Free,Serum (Collection Date & Time - 03/27/2024 08:22 AM) 3. G gardenia-esophageal reflux disease without esophagitis L AB: CBC With Differential/Platelet (Collection Date & Time - 03/27/2024 08:22 AM) 4. V itamin D deficiency, unspecified L AB: Vitamin D, 25-Hydroxy (Collection Date & Time - 03/27/2024 08:22 AM) 5. C hronic kidney disease, stage 3a L AB: Comp. Metabolic Panel (14) (Collection Date & Time - 03/27/2024 08:22 AM) 6. H ypertensive chronic kidney disease with stage 1 through stage 4 chronic kidney disease, or unspecified chronic kidney disease L AB: Comp. Metabolic Panel (14) (Collection Date & Time - 03/27/2024 08:22 AM) 7. P rediabetes L AB: Hemoglobin A1c (Collection Date & Time - 03/27/2024 08:22 AM) * Labs: * L ab: Triiodothyronine,Free,Serum (Collection Date & Time - 03/27/2024 08:22 AM) L ab: Lipid Panel w/ Chol/HDL Ratio 132438 (Collection Date & Time - 03/27/2024 08:22 AM) L ab: CBC With Differential/Platelet (Collection Date & Time - 03/27/2024 08:22 AM) L ab: TSH+Free T4 (Collection Date & Time - 03/27/2024 08:22 AM) L ab: Hemoglobin A1c (Collection Date & Time - 03/27/2024 08:22 AM) L ab: Comp. Metabolic Panel (14) (Collection Date & Time - 03/27/2024 08:22 AM) L ab: Vitamin D, 25-Hydroxy (Collection Date & Time - 03/27/2024 08:22 AM) * Electronic signature of Wilfrido Moore MD on 06/23/2025 at 06:09 PM EST Sign off status: Pending * Provider: Noni Moore MD Date: 0 03/26/2024 Generated for Rayray guzman/Beto/Ganesh on: 1 08/24/2024 06:09 PM EST
--- OUTSIDE RECORDS SUMMARY | 2024-10-16 08:45 | XMS_ITS ---
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 Name Role Phone Stephen Moore Primary Care Provider [phone] Allergies No Known Allergies REASON FOR VISIT Physical Medications Medication SIG (Take, Route, Frequency, Duration) Notes Start Date End Date Status Synthroid 75 MCG Tablet TAKE 1 TABLET ON CE DAILY INTHE MORNING ON AN EMPTY STOMACH Orally Once a day; Duration: 90 days Active Tamsulosin HCl 0.4 MG Capsule Extended Release 24 Hour 1 capsule 30 minutes after the same meal each day Orally Once a day; Duration: 90 days Active Valsartan-hydroCHLOROthiazi de 320-12.5 MG Tablet TAKE 1 TABLET ONCE DAILY Orally Once a day; Duration: 90 days Active Fluticasone Propionate 50 MCG/ACT Suspension 1 spray in each nostril Nasal Once a day; Duration: 90 days Active Omeprazole 40 MG Capsule Delayed Release TAKE 1 CAPSULE ONCE DAILY 30 MINUTES BEFORE MORNING MEAL.; Duration: 90 Active Azelastine HCl 137 MCG/SPRAY Solution 1 puff in each nostril Nasally Twice a day; Duration: 90 days Active Pravastatin Sodium 80 MG Tablet TAKE 1 TABLET DAILY Orally Once a day; Duration: 90 days Active ALPRAZolam 1 MG Tablet 1 tablet Orally O nce a day as needed; Duration: 90 days prn Active Valsartan-hydroCHLOROthiazi de 320-12.5 MG Tablet TAKE 1 TABLET ONCE DAILY Orally Once a day; Duration: 90 days Active Omeprazole 40 MG Capsule Delayed Release TAKE 1 CAPSULE ONCE DAILY 30 MINUTES BEFORE MORNING MEAL Orally Once a day; Duration: 90 days Active Montelukast Sodium 10 MG Tablet 1 tablet Oral Once a day; Duration: 90 days Active Escitalopram Oxalate 10 MG Tablet TAKE 1 TABLET ONCE DAILY; Duration: 90 Active Problems Problem Type SNOMED Code ICD Code Onset Dates Problem Status W/U Status Risk Notes Problem Body mass index 35.00 to 39.99 (581610466403 105) Body mass index [BMI] 36.0-36.9, adult (Z68.36) Active confirmed Encounters Encounter Location Date Provider Diagnosis [facility] [address] [place], [place] [id number] 10/16/2024 Stephen Moore Encounter for genera l adult medical examination without abnormal findings Z00.00 ; Encounter for screening for depression Z13.31 ; Gastro-esophageal reflux disease without esophagitis K21.9 ; Mixed hyperlipidemia E78.2 ; Hypertensive chronic kidney disease with stage 1 through stage 4 chronic kidney disease, or unspecified chronic kidney disease I12.9 ; Other seasonal allergic rhinitis J30.2 ; Atrophy of thyroid (acquired) E03.4 ; Chronic kidney disease, stage 3a N18.31 and Body mass index [BMI] 36.0-36.9, adult Z68.36 Assessments Encounter Date Diagnosis (ICD Code) Assessment Notes Treatment Notes Treatment Clinical Notes Section Notes 10/16/2024 Encounter for general adult medical examination without abnormal findings (ICD-10 - Z00.00) Patient was advised and counseled to take medications as recommended. If there are any problems patient agrees to call us. Patient was counseled regarding details pertaining to advanced directive and care. [employer] paperwork was provided and explained. Questions about DNR, living will and healthcare power of attornery were answered. Patient verbalizes understanding of advanced directive terminology and was educated on the opitions. Discussed with patient in detail sun avoidance, sun protection, and annual follow-up. Must follow-up as needed with new or changing moles. Counseled on low fat/ low salt diet. Advised Hemoglobin AIC/accuchecks need to be in target range of < 7 BP in target range of < 130/80 ? : Lipids/LDL if over the target range of < 100 ? : counseled on low cholesterol diet. Colonoscopy current ? : PSA current (if male) ? : Mammogram and pap smear current (if female) ? : Smoke screening done. Depression screening done Sun avoidance discussed, protection and annual skin check follow up. Flu vaccine current ? : Pneumonia vaccine current ? : Shingles vaccine current ? : Covid 19 vaccine current ? : 10/16/2024 Encounter for screening for depression (ICD-10 - Z13.31) Patient is screened for depression there is no sign of clinical depression. 10/16/2024 Gastro-esophageal reflux disease without esophagitis (ICD-10 - K21.9) Advised to avoid coffee, chocolate and spicy foods. Advise to eat atleast about 2-3 hours prior to lying flat and stay upright after meal for atleast 3-4 hours. 10/16/2024 Mixed hyperlipidemia (ICD-10 - E78.2) Reviewed lipids and LFT'S that were with in the target range. Will continue present therapy and refill medications also advised patient to follow a low fat and low cholesterol diet , Along with a daily exersise programe. 10/16/2024 Hypertensive chronic kidney disease with stage 1 through stage 4 chronic kidney disease, or unspecified chronic kidney disease (ICD-10 - I12.9) BP is within the target range, will continue present therapy and refill meds. Advised patient low salt and low cholesterol diet with life style modification and exersise programe . Alcohol and caffine in moderation. 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 Recently completed 2 rounds of prednisone. Continue azalastin, singular, flonase and inhaler. 10/16/2024 Atrophy of thyroid (acquired) (ICD-10 - E03.4) Reviewed Thyroid profile and TSH was within the therapeutic range will continue present therapy and refill meds 10/16/2024 Chronic kidney disease, stage 3a (ICD-10 - N18.31) 10/16/2024 Body mass index [BMI] 36.0-36.9, adult (ICD-10 - Z68.36) 10/16/2024 Other Discussed the importance of yearly Influenza vaccine Plan Of Treatment Medication Medication Name Sig Start Date Stop Date Notes Synthroid 75 MCG Tablet TAKE 1 TABLET ON CE DAILY INTHE MORNING ON AN EMPTY STOMACH Orally Once a day; Duration: 90 days Fluticasone Propionate 50 MCG/ACT Suspension 1 spray in each nostril Nasal Once a day; Duration: 90 days Pravastatin Sodium 80 MG Tablet TAKE 1 T ABLET DAILY Orally Once a day; Duration: 90 days Valsartan-hydroCHLOROthiazid e 320-12.5 MG Tablet TAKE 1 TABLET ONCE DAILY Orally Once a day; Duration: 90 days Omeprazole 40 MG Capsule Delayed Release TAKE 1 CAPSULE ONCE DAILY 30 MINUTES BEFORE MORNING MEAL Orally Once a day; Duration: 90 days Treatment Notes Assessment Notes Encounter for general adult medical examination without abnormal findings Patient was advised and counseled to take medications as recommended. If there are any problems patient agrees to call us. Patient was counseled regarding details pertaining to advanced directive and care. [employer] paperwork was provided and explained. Questions about DNR, living will and healthcare power of attornery were answered. Patient verbalizes understanding of advanced directive terminology and was educated on the opitions. Discussed with patient in detail sun avoidance, sun protection, and annual follow-up. Must follow-up as needed with new or changing moles. Counseled on low fat/ low salt diet. Advised Hemoglobin AIC/accuchecks need to be in target range of < 7 BP in target range of < 130/80 ? : Lipids/LDL if over the target range of < 100 ? : counseled on low cholesterol diet. Colonoscopy current ? : PSA current (if male) ? : Mammogram and pap smear current (if female) ? : Smoke screening done. Depression screening done Sun avoidance discussed, protection and annual skin check follow up. Flu vaccine current ? : Pneumonia vaccine current ? : Shingles vaccine current ? : Covid 19 vaccine current ? : Encounter for screening for depression P atient is screened for depression there is no sign of clinical depression. Gastro-esophageal reflux dis ease without esophagitis Advised to avoid coffee, chocolate and spicy foods. Advise to eat atleast about 2-3 hours prior to lying flat and stay upright after meal for atleast 3-4 hours. Mixed hyperlipidemia Reviewed lipids and LFT'S that were with in the target range. Will continue present therapy and refill medications also advised patient to follow a low fat and low cholesterol diet , Along with a daily exersise programe. Hypertensive chronic kidney disease with stage 1 through stage 4 chronic kidney disease, or unspecified chronic kidney disease BP is within the target range, will continue present therapy and refill meds. Advised patient low salt and low cholesterol diet with life style modification and exersise programe . Alcohol and caffine in moderation. 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 Recently completed 2 rounds of prednisone. Continue azalastin, singular, flonase and inhaler. Atrophy of thyroid (acquired) Reviewed T hyroid profile and TSH was within the therapeutic range will continue present therapy and refill meds Other Discussed the import ance of yearly Influenza vaccine Next Appt Details Provider Name:Stephen coronado, 06/25/2025 02:30:00 PM, [address], [place], [place], [phone], Provider Name:Stephen coronado, 12/15/2025 02:00:00 PM, [address], [place], [place], [id number], History and Physical Notes * HPI (History of Present Illness) Category Sub-Category Detail Notes Category Not es Depression PHQ-9 Little interest or pleasure in doing things: Not at all Feeling down, depressed, or hopeless: No t at all Trouble falling or staying asleep, or sl eeping too much: Not at all Feeling tired or having little energy: N ot at all Poor appetite or overeating: Not at all Feeling bad about yourself o r that you are a failure, or have let yourself or your family down: Not at all Trouble concentrating on thi ngs, such as reading the newspaper or watching television: Not at all Moving or speaking so slowly that other people could have noticed; or the opposite, being so fidgety or restless that you have been moving around a lot more than usual: Not at all Thoughts that you would be b kesha off or of hurting yourself in some way: Not at all Total Score: 0 Fall Risk Screening Fall Risk Assessment Fall Ri sk Assessment:: No falls in the past year Walking Aid: None Balance: Gait/Balance Normal Standing : Stands with 1 try Pain Assessment Do you have any pain today no Functional Assessment Independent in all functions listed Bathing, Dressing, Grooming, Oral Care, Toileting, Eating, Shopping, Cooking, Manages Medications, Housework, Driving, Managing finances, Recreational activities, Transferring/Walking/Climing stairs Cognitive Functioning (Mini Mental) Oriented TOTAL 10 Spell WORLD backwards 5 correct letters Recall: Have patient repeat words back 3 Show watch 1 Show pen/pencil::Ask: What is this palmer d? 1 Repeat after me: No ifs, ands or buts 1 Recall the previous three words: 3 Write CLOSE YOUR EYES on a piece of colleen r 1 Ask patient to write any sentence 1 Take a piece of paper in none dominant h and 3 TOTAL SCORE TOTAL 30 Draw Shape 1 Urinary Incontinence (QUID) Do you leak urine (even sm all drops) no When you cough or sneeze? None of the ti me= 0 points When you bend down or lift something up? None of the time= 0 points When you walk quickly, jog or exercise? None of the time= 0 points While you are undressing in order to use the toilet? None of the time= 0 points Examination Category Sub-Category Detail Notes Category Not es General Examination GENERAL APPEARANCE: Alert, w ell hydrated, Well developed, well nourished, in no acute distress HEAD: normocephalic, atrau matic, no scalp lesions EYES: BOTH EYES, PERRLA, p ink conjunctiva, sclera non-icteric EARS: BOTH EARS, hearing i ntact to whispered voice, tympanic membrane intact & clear, light reflex present NOSE: nares patent, septum intact, no lesions THROAT: clear, no erythema, no exudate NECK/THYROID: neck supple, no cerv ical lymphadenopathy HEART: S1, S2 normal, regul ar rate and rhythm CHEST: normal, no costochon dral tenderness LUNGS: clear to auscultatio n bilaterally, no wheezes, rales or rhonchi ABDOMEN: soft, nontender, non distended, no rebound tenderness NEUROLOGIC: alert and oriented x 3, nonfocal SKIN: warm and dry, no jorge picious lesions EXTREMITIES: no edema of legs, no erythema or tenderness PERIPHERAL PULSES: 2+ dorsalis pedis, 2 + posterior tibial BACK: full range of motion , no costovertebral angle tenderness, no kyphosis PSYCH: cognitive function i ntact, cooperative with exam, judgement and insight good ORAL CAVITY: mucosa moist, palate normal Progress Notes * EL WOOD IIIDOB: [birth year] (69 yo M)Acc No.[id number]:10/16/2024 progress notes Patient: Mamie CINDI EL Bond III Provider: Elmira Moore MD :[id number] A ge:69 Y S ex:Male Date:10/16/2024 Address:[address] [place] [address] [address] [id number] Subjective: * Chief Complaints: * P hysical * HPI: C onstitutional: Patient is here for yearly CPE. D epression: c/o PHQ-9 L ittle interest or pleasure in doing things?Not at all F eeling down, depressed, or hopeless N ot at all T rouble falling or staying asleep, or sleeping too much N ot at all F eeling tired or having little energy N ot at all P oor appetite or overeating N ot at all F eeling bad about yourself or that you are a failure, or have let yourself or your family down N ot at all T rouble concentrating on things, such as reading the newspaper or watching television N ot at all M oving or speaking so slowly that other people could have noticed; or the opposite, being so fidgety or restless that you have been moving around a lot more than usual N ot at all T houghts that you would be better off or of hurting yourself in some way N ot at all T otal Score 0 P ain Assessment: Do you have any pain today n o. F all Risk Screening: Fall Risk Assessment F all Risk Assessment: N o falls in the past year W alking Aid N one B alance G ait/Balance Normal S tanding S tands with 1 try F unctional Assessment: Independent in all functions listed B athing, Dressing, Grooming, Oral Care, Toileting, Eating, Shopping, Cooking, Manages Medications, Housework, Driving, Managing finances, Recreational activities, Transferring/Walking/Climing stairs. U rinary Incontinence (QUID): Do you leak urine (even small drops) n o. When you cough or sneeze? N one of the time= 0 points. When you bend down or lift something up? N one of the time= 0 points. When you walk quickly, jog or exercise? N one of the time= 0 points. While you are undressing in order to use the toilet? N one of the time= 0 points. C ognitive Functioning (Mini Mental): Oriented T OTAL 10. Spell WORLD backwards 5 correct letters. Recall: Have patient repeat words back 3 . Show watch 1 . Show pen/pencil::Ask: What is this called? 1 . Repeat after me: No ifs, ands or buts 1 . Recall the previous three words: 3 . Write CLOSE YOUR EYES on a piece of paper 1 . Ask patient to write any sentence 1 . Take a piece of paper in none dominant hand 3 . Draw Shape 1 . TOTAL SCORE T OTAL 30. * ROS: G eneral/Constitutional: Patient denies f atigue, fever, change in appetite, weight changes, night sweats. O phthalmologic: Patient denies b lurred vision, diminished visual acuity, double vision, loss of vision. E NT: Patient denies d ry mouth, ear pain, nosebleed, sinus pain, sore throat, swollen glands. E ndocrine: Patient denies c old intolerance, heat intolerance, difficulty sleeping, dizziness, excessive sweating, excessive thirst, frequent urination. R espiratory: Patient denies c ough, sputum production, wheezing, Shortness of breath. C ardiovascular: Patient denies c hest pain at rest, shortness of breath, dizziness, dyspnea on exertion, palpitations. G astrointestinal: Patient denies a bdominal pain, nausea, vomiting, diarrhea, constipation, change in bowel habits. M usculoskeletal: Patient denies c arpal tunnel, sciatica, weakness, myalgia, joint pains. S kin: Patient denies r mika, hives, dry skin, itching, eczema.? N eurology: Patient denies h eadache, dizziness, fainting, tingling/numbness. P sychiatric: Patient denies a nxiety, auditory/visual hallucinations, delusions, depressed mood, substance abuse. * Medical History: Anxiety disorder Osteoarthritis Depression GERD Hyperlipidemia Hypertension Nontoxic thyroid nodule Medical History Verified * Surgical History: right knee arthroscopy shoulder arthroscopy laparoscopic cholecystectomy sinus surgery Surgical History verified. * Hospitalization/Major Diagno stic Procedure: see surgeries Hospitalization Verified. * Family History: F ather: . M other: . 2 sister(s) . 1 son(s) , 2 daughter(s) . . ARTHIRTIS, ANXIETY, ALCHOL ABUSE, HYPERTENSION, HYPERLIPIDEMIA,NICOTINE USAGE, THYROID DIESEASE, ASTHMA. * Medications: T akingSynthroid 75 MCG Tablet TAKE 1 TABLET ONCE DAILY INTHE MORNING ON AN EMPTY STOMACH Orally Once a day Pravastatin Sodium 80 MG Tablet TAKE 1 TABLET DAILY Orally Once a day Omeprazole 40 MG Capsule Delayed Release TAKE 1 CAPSULE ONCE DAILY 30 MINUTES BEFORE MORNING MEAL. Tamsulosin HCl 0.4 MG Capsule Extended Release 24 Hour 1 capsule 30 minutes after the same meal each day Orally Once a day Valsartan-hydroCHLOROthiazide 320-12.5 MG Tablet TAKE 1 TABLET ONCE DAILY Orally Once a day Fluticasone Propionate 50 MCG/ACT Suspension 1 spray in each nostril Nasal Once a day Escitalopram Oxalate 10 MG Tablet TAKE 1 TABLET ONCE DAILY Montelukast Sodium 10 MG Tablet 1 tablet Oral Once a day ALPRAZolam 1 MG Tablet 1 tablet Orally Once a day as needed , Notes to Pharmacist: prnAzelastine HCl 137 MCG/SPRAY Solution 1 puff in each nostril Nasally Twice a day Taking Synthroid 75 MCG Tablet TAKE 1 TABLET ONCE DAILY INTHE MORNING ON AN EMPTY STOMACH Orally Once a day Taking Pravastatin Sodium 80 MG Tablet TAKE 1 TABLET DAILY Orally Once a day Taking Omeprazole 40 MG Capsule Delayed Release TAKE 1 CAPSULE ONCE DAILY 30 MINUTES BEFORE MORNING MEAL. Taking Tamsulosin HCl 0.4 MG Capsule Extended Release 24 Hour 1 capsule 30 minutes after the same meal each day Orally Once a day Taking Valsartan-hydroCHLOROthiazide 320- 12.5 MG Tablet TAKE 1 TABLET ONCE DAILY Orally Once a day Taking Fluticasone Propionate 50 MCG/ACT Suspension 1 spray in each nostril Nasal Once a day Taking Escitalopram Oxalate 10 MG Tablet TAKE 1 TABLET ONCE DAILY Taking Montelukast Sodium 10 MG Tablet 1 tablet Oral Once a day Taking ALPRAZolam 1 MG Tablet 1 tablet Orally Once a day as needed , Notes to Pharmacist: prnTaking Azelastine HCl 137 MCG/SPRAY Solution 1 puff in each nostril Nasally Twice a day * Allergies: N .K.D.A.yesAllergies Verified. Objective: * Examination: G eneral Examination: GENERAL APPEARANCE: A lert, well hydrated, Well developed, well nourished, in no acute distress. HEAD: n ormocephalic, atraumatic, no scalp lesions. EYES: B OTH EYES, PERRLA, pink conjunctiva, sclera non-icteric. EARS: B OTH EARS, hearing intact to whispered voice, tympanic membrane intact & clear, light reflex present. NOSE: n yair patent, septum intact, no lesions. ORAL CAVITY: m ucosa moist, palate normal. THROAT: c lear, no erythema, no exudate. NECK/THYROID: n ari supple, no cervical lymphadenopathy.? SKIN: w arm and dry, no suspicious lesions. HEART: S 1, S2 normal, regular rate and rhythm. LUNGS: c lear to auscultation bilaterally, no wheezes, rales or rhonchi. CHEST: n ormal, no costochondral tenderness. ABDOMEN: s oft, nontender, nondistended, no rebound tenderness. BACK: f ull range of motion, no costovertebral angle tenderness, no kyphosis. EXTREMITIES: n o edema of legs, no erythema or tenderness.? PERIPHERAL PULSES: 2 + dorsalis pedis, 2+ posterior tibial.? NEUROLOGIC: a lert and oriented x 3, nonfocal. PSYCH: c ognitive function intact, cooperative with exam, judgement and insight good. Assessment: * Assessment: 1. E ncounter for general adult medical examination without abnormal findings - Z00.00 (Primary) 2 . E ncounter for screening for depression - Z13.31 3 . G gardenia-esophageal reflux disease without esophagitis - K21.9 4 . M ixed hyperlipidemia - E78.2 5 . H ypertensive chronic kidney disease with stage 1 through stage 4 chronic kidney disease, or unspecified chronic kidney disease - I12.9 6 . O ther seasonal allergic rhinitis - J30.2 7 . A trophy of thyroid (acquired) - E03.4 8 . C hronic kidney disease, stage 3a - N18.31 9 . B earnest mass index [BMI] 36.0-36.9, adult - Z68.36 Plan: * Treatment: 2. E ncounter for screening for depression Notes: Patient is screened for depression there is no sign of clinical depression. 3. G gardenia-esophageal reflux disease without esophagitis Refill Omeprazole Capsule Delayed Release, 40 MG, TAKE 1 CAPSULE ONCE DAILY 30 MINUTES BEFORE MORNING MEAL, Orally, Once a day, 90 days, 90 Tablet, Refills 0. Notes: Advised to avoid coffee, chocolate and spicy foods. Advise to eat atleast about 2-3 hours prior to lying flat and stay upright after meal for atleast 3-4 hours. 4. M ixed hyperlipidemia Refill Pravastatin Sodium Tablet, 80 MG, TAKE 1 TABLET DAILY, Orally, Once a day, 90 days, 90, Refills 0. Notes: Reviewed lipids and LFT'S that were with in the target range. Will continue present therapy and refill medications also advised patient to follow a low fat and low cholesterol diet , Along with a daily exersise programe. 5. H ypertensive chronic kidney disease with stage 1 through stage 4 chronic kidney disease, or unspecified chronic kidney disease Refill Valsartan-hydroCHLOROthiazide Tablet, 320-12.5 MG, TAKE 1 TABLET ONCE DAILY, Orally, Once a day, 90 days, 90, Refills 0. Notes: BP is within the target range, will continue present therapy and refill meds. Advised patient low salt and low cholesterol diet with life style modification and exersise programe . Alcohol and caffine in moderation. 6. O ther seasonal allergic rhinitis Refill Fluticasone Propionate Suspension, 50 MCG/ACT, 1 spray in each nostril, Nasal, Once a day, 90 days, 16 Gram, Refills 0. Notes: Follows with fire department [employer] chief. Recently completed 2 rounds of prednisone. Continue azalastin, singular, flonase and inhaler. 7. A trophy of thyroid (acquired) Refill Synthroid Tablet, 75 MCG, TAKE 1 TABLET ONCE DAILY INTHE MORNING ON AN EMPTY STOMACH, Orally, Once a day, 90 days, 90, Refills 0. Notes: Reviewed Thyroid profile and TSH was within the therapeutic range will continue present therapy and refill meds 8. O thers Notes: D iscussed the importance of yearly Influenza vaccine * Procedure Codes: G 0439 ANNUAL WELLNESS VST; PPS SUBSQT [id number] DOC MEDS VERIFIED W/PT OR [id number] NEG SCR D PT NOT ELIG F/U/PLN [id number] Pt scrn tbco id as non [id number] TOBACCO [id number] PT FALLS ASSESS-DOC'D [id number] FALL RISK ASSESSMENT [id number] MOST RECENT SYSTOLIC BP < 140MM [id number] MOST RECENT DIASTOLIC BP < 90MM [id number] ELDER MALTX SCR DOC NEG NO F/U [id number] FLU IMMUNIZE ORDER/[id number] PNEUMOC IMM ORDER/[id number] FXNL STATUS [id number] COGNIT IMPAIRMENT [id number] COGNIT ASSESSED AND [id number] PRES/ABSN URINE INCON [id number] Funct status past 12 [id number] CURRENTLY A TOBACCO [id number] LDL-C <100 MG/DL Billing Information: * Procedure Codes: G0439 ANNUAL WELLNESS VST; PPS SUBSQT VST. G8427 DOC MEDS VERIFIED W/PT OR RE. G8510 NEG SCR D PT NOT ELIG F/U/PLN DOC. G9903 Pt scrn tbco id as non user. 1036F TOBACCO NON-USER. 1101F PT FALLS ASSESS-DOC'D LE/YR. 3288F FALL RISK ASSESSMENT DOCD. G8752 MOST RECENT SYSTOLIC BP < 140MM HG. G8754 MOST RECENT DIASTOLIC BP < 90MM HG. G8734 ELDER MALTX SCR DOC NEG NO F/U RQR. G8482 FLU IMMUNIZE ORDER/ADMIN. 4040F PNEUMOC IMM ORDER/ADMIN. 1170F FXNL STATUS ASSESSED. 3720F COGNIT IMPAIRMENT ASSESSED. 1494F COGNIT ASSESSED AND REVIEWED. 1090F PRES/ABSN URINE INCON ASSESS. G9916 Funct status past 12 months. G9459 CURRENTLY A TOBACCO NON-USER. 3048F LDL-C <100 MG/DL. * Electronic signature of Darryn Moore MD on 06/23/2025 at 06:09 PM EST Sign off status: Pending * Provider: Elmira Moore MD Date: 0 10/16/2024 Generated for Rayray guzman/Beto/Isidraitting on: 1 08/24/2024 06:09 PM EST
--- OUTSIDE RECORDS SUMMARY | 2024-12-01 07:45 | XMS_ITS ---
Author Organization [facility] Address [address] [facility] 200 [place], [place] [id number] Care Team Providers Care Hydrogen Operator Name Role Phone Stephen Moore Primary Care Provider [phone] Results Component Value Reference Range Flag Notes COMPREHENSIVE METABOLIC CORALE L Reviewed date:12/09/2024 01:26:20 PM Interpretation: Performing Lab:[facility], [facility] [address] [place], [address] Ranjeet Miguel MD Notes/Report: Received Date: FASTING:YES FASTING: YES GLUCOSE 114 65-99 mg/dL H Fasting reference interval For someone without known diabetes, a glucose value between 100 and 125 mg/dL is consistent with prediabetes and should be confirmed with a follow-up test. UREA NITROGEN (BUN) 28 7-25 mg/dL H CREATININE 1.02 0.70-1.35 mg/dL N EGFR 80 > OR = 60 mL/min/1.73m2 N BUN/CREATININE RATIO 27 6-22 (calc) H SODIUM 140 135-146 mmol/L N POTASSIUM 3.8 3.5-5.3 mmol/L N CHLORIDE 105 98-110 mmol/L N CARBON DIOXIDE 27 20-32 mmol/L N CALCIUM 9.4 8.6-10.3 mg/dL N PROTEIN, TOTAL 6.5 6.1-8.1 g/dL N ALBUMIN 4.2 3.6-5.1 g/dL N GLOBULIN 2.3 1.9-3.7 g/dL (calc) N ALBUMIN/GLOBULIN RATIO 1.8 1.0-2.5 (calc) N BILIRUBIN, TOTAL 0.7 0.2-1.2 mg/dL N ALKALINE PHOSPHATASE 28 35-144 U/L L AST 22 10-35 U/L N ALT 28 9-46 U/L N VITAMIN D, 25-HYDROXY, LC/MS /MS Reviewed date:03/31/2025 07:02:10 AM Interpretation: Performing Lab:[facility], [facility] [place], [place], [address] Ranjeet Miguel MD Notes/Report: Received Date: [id number] FASTING:YES AN UPDATE OR CORRECTION HAS BEEN MADE TO NAME FASTING: YES VITAMIN D,25-OH,TOTAL,IA 49 30-100 ng/mL N Vitamin D Status 25-OH Vitamin D: Deficiency: <20 ng/mL Insufficiency: 20 - 29 ng/mL Optimal: > or = 30 ng/mL For 25-OH Vitamin D testing on patients on D2-supplementation and patients for whom quantitation of D2 and D3 fractions is required, the QuestAssureD(TM) 25-OH VIT D, (D2,D3), LC/MS/MS is recommended: order code [id number] (patients >2yrs). See Note 1 Note 1 For additional information, please refer to http://[facility].Science Exchange/faq/IJE545 (This link is being provided for informational/ educational purposes only.) LIPID PANEL WITH RATIOS Reviewed date:12/09/2024 01:26:20 PM Interpretation: Performing Lab:[facility], [facility] [address], [place], [place], [address] Ranjeet Miguel MD Notes/Report: Received Date: [id number] FASTING:YES FASTING: YES CHOLESTEROL, TOTAL 195 <200 mg/dL N HDL CHOLESTEROL 53 > OR = 40 mg/dL N TRIGLYCERIDES 138 <150 mg/dL N LDL-CHOLESTEROL 116 H Reference range: <100 Desirable range <100 mg/dL for primary prevention; <70 mg/dL for patients with CHD or diabetic patients with > or = 2 CHD risk factors. LDL-C is now calculated using the Bo-Jaime calculation, which is a validated novel method providing better accuracy than the Friedewald equation in the estimation of LDL-C. Bo DIAZ et al. DARCY. 2013;310(19): 2111-5380 (http://education.PageUp People.Numascale/faq/SZJ378) CHOL/HDLC RATIO 3.7 <5.0 (calc) N LDL/HDL RATIO 2.2 Below Average Risk: <2.28 Average Risk: 2.29-4.90 Moderate Risk: 4.91-7.12 High Risk: >7.13 NON HDL CHOLESTEROL 142 <130 mg/dL (calc) H For patients with diabetes plus 1 major ASCVD risk factor, treating to a non-HDL-C goal of <100 mg/dL (LDL-C of <70 mg/dL) is considered a therapeutic option. T3, FREE Reviewed date:03/31/2025 07:02:10 AM Interpretation: Performing Lab:[facility], [address] [place], [place], [address] Ranjeet Miguel MD Notes/Report: Received Date: [id number] FASTING:YES AN UPDATE OR CORRECTION HAS BEEN MADE TO NAME FASTING: YES T3, FREE 3.3 2.3-4.2 pg/mL N HEMOGLOBIN A1c Reviewed date:12/09/2024 01:26:20 PM Interpretation: Performing Lab:[facility], [address], [place], [place], [address] Ranjeet Miguel MD Notes/Report: Received Date: [id number] FASTING:YES FASTING: YES HEMOGLOBIN A1c 6.2 <5.7 % H For someone without known diabetes, a hemoglobin A1c value between 5.7% and 6.4% is consistent with prediabetes and should be confirmed with a follow-up test. For someone with known diabetes, a value <7% indicates that their diabetes is well controlled. A1c targets should be individualized based on duration of diabetes, age, comorbid conditions, and other considerations. This assay result is consistent with an increased risk of diabetes. Currently, no consensus exists regarding use of hemoglobin A1c for diagnosis of diabetes for children. URINALYSIS, COMPLETE Reviewed date:03/31/2025 07:02:10 AM Interpretation: Performing Lab:[facility]EN [facility], [address], [place], [place], [phone] Ranjeet Miguel MD Notes/Report: Received Date: [id number] FASTING:YES AN UPDATE OR CORRECTION HAS BEEN MADE TO NAME FASTING: YES COLOR YELLOW YELLOW N APPEARANCE CLEAR CLEAR N SPECIFIC GRAVITY 1.019 1.001-1.035 N PH 6.0 5.0-8.0 N GLUCOSE NEGATIVE NEGATIVE N BILIRUBIN NEGATIVE NEGATIVE N KETONES NEGATIVE NEGATIVE N OCCULT BLOOD NEGATIVE NEGATIVE N PROTEIN NEGATIVE NEGATIVE N NITRITE NEGATIVE NEGATIVE N LEUKOCYTE ESTERASE NEGATIVE NEGATIVE N WBC NONE SEEN < OR = 5 /HPF N RBC NONE SEEN < OR = 2 /HPF N SQUAMOUS EPITHELIAL CELLS NONE SEEN < OR = 5 /HPF N BACTERIA NONE SEEN NONE SEEN /HPF N HYALINE CAST NONE SEEN NONE SEEN /LPF N NOTE This urine was analyzed for the presence of WBC, RBC, bacteria, casts, and other formed elements. Only those elements seen were reported. CBC (INCLUDES DIFF/PLT) LC/Q Reviewed date:03/31/2025 07:02:10 AM Interpretation: Performing Lab:[facility], [facility], [facility] [address], [place], [address] Ranjeet Miguel MD Notes/Report: Received Date: FASTING:YES AN UPDATE OR CORRECTION HAS BEEN MADE TO NAME FASTING: YES WHITE BLOOD CELL COUNT 6.1 3.8-10.8 Thousand/uL N RED BLOOD CELL COUNT 4.15 4.20-5.80 Million/uL L HEMOGLOBIN 12.2 13.2-17.1 g/dL L HEMATOCRIT 39.3 38.5-50.0 % N MCV 94.7 80.0-100.0 fL N MCH 29.4 27.0-33.0 pg N MCHC 31.0 32.0-36.0 g/dL L For adults, a slight decrease in the calculated MCHC value (in the range of 30 to 32 g/dL) is most likely not clinically significant; however, it should be interpreted with caution in correlation with other red cell parameters and the patient's clinical condition. RDW 12.7 11.0-15.0 % N PLATELET COUNT 348 140-400 Thousand/uL N MPV 8.5 7.5-12.5 fL N ABSOLUTE NEUTROPHILS 3117 8125-8270 cells/uL N ABSOLUTE LYMPHOCYTES 7866 937-2825 cells/uL N ABSOLUTE MONOCYTES 836 200-950 cells/uL N ABSOLUTE EOSINOPHILS 110 15-500 cells/uL N ABSOLUTE BASOPHILS 49 0-200 cells/uL N NEUTROPHILS 51.1 N LYMPHOCYTES 32.6 N MONOCYTES 13.7 N EOSINOPHILS 1.8 N BASOPHILS 0.8 N T4, FREE Reviewed date:03/31/2025 07:02:10 AM Interpretation: Performing Lab:[facility], [facility] [address] [place], [place], [address] Ranjeet Miguel MD Notes/Report: Received Date: FASTING:YES AN UPDATE OR CORRECTION HAS BEEN MADE TO NAME FASTING: YES T4, FREE 1.4 0.8-1.8 ng/dL N TSH Reviewed date:03/31/2025 07:02:10 AM Interpretation: Performing Lab:TP, [facility], [address] [place], [place], [address] Ranjeet Miguel MD Notes/Report: Received Date: FASTING:YES AN UPDATE OR CORRECTION HAS BEEN MADE TO NAME FASTING: YES TSH 1.14 0.40-4.50 mIU/L N REASON FOR VISIT quest Encounters Encounter Location Date Provider Diagnosis [facility] 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 Z79.899 Assessments Encounter Date Diagnosis (ICD Code) Assessment Notes Treatment Notes Treatment Clinical Notes Section Notes 12/01/2024 Mixed hyperlipidemia (ICD-10 - E78.2) 12/01/2024 Atrophy of thyroid (acquired) (ICD-10 - E03.4) 12/01/2024 Chronic kidney disease, stage 2 (mild) (ICD-10 - N18.2) 12/01/2024 Hypertensive chronic kidney disease with stage 1 through stage 4 chronic kidney disease, or unspecified chronic kidney disease (ICD-10 - I12.9) 12/01/2024 Chronic kidney disease, stage 3a (ICD-10 - N18.31) 12/01/2024 Prediabetes (ICD-10 - R73.03) 12/01/2024 Other intermediate school teacher (current) drug therapy (ICD-10 - Z79.899) Plan Of Treatment Pending Test Test Name Order Date CBC (H/H, RBC, INDICES, WBC, PLT) 2024 Next Appt Details Provider Name:Stephen coronado, 06/25/2025 02:30:00 PM, [address] [facility] [address], [place], [place], [phone], Provider Name:Stephen coronado, 12/15/2025 02:00:00 PM, [address] [facility], [place], [place], [phone], Progress Notes * EL WOOD IIIDOB: [birth year] (69 yo M)Acc No.[id number]:12/01/2024 progress notes Patient: Mamie EL PUENTE III Provider: Elmira Moore MD :1955 A ge:69 Y S ex:Male Date:12/01/2024 Address:[address] [place], [place] [phone] Subjective: * Chief Complaints: * Q uest Assessment: * Assessment: 1. M ixed hyperlipidemia - E78.2 2 . A trophy of thyroid (acquired) - E03.4? 3. C hronic kidney disease, stage 2 (mild) - N18.2 4 . H ypertensive chronic kidney disease with stage 1 through stage 4 chronic kidney disease, or unspecified chronic kidney disease - I12.9 5 . C hronic kidney disease, stage 3a - N18.31? 6. P rediabetes - R73.03 7 . O ther residential (current) drug therapy - Z79.899 Plan: * Treatment: 2. A trophy of thyroid (acquired) L AB: T4, FREE (Collection Date & Time - 03/30/2025 07:09 AM) L AB: TSH (Collection Date & Time - 03/30/2025 07:09 AM) 3. H ypertensive chronic kidney disease with stage 1 through stage 4 chronic kidney disease, or unspecified chronic kidney disease L AB: COMPREHENSIVE METABOLIC PANEL (Collection Date & Time - 12/04/2024 06:34 AM) 4. P rediabetes L AB: HEMOGLOBIN A1c (Collection Date & Time - 12/04/2024 06:34 AM) 5. O ther intermediate school teacher (current) drug therapy L AB: CBC (H/H, RBC, INDICES, WBC, PLT) L AB: COMPREHENSIVE METABOLIC PANEL (Collection Date & Time - 12/04/2024 06:34 AM) L AB: LIPID PANEL WITH RATIOS (Collection Date & Time - 12/04/2024 06:34 AM) L AB: HEMOGLOBIN A1c (Collection Date & Time - 12/04/2024 06:34 AM) L AB: T4, FREE (Collection Date & Time - 03/30/2025 07:09 AM) L AB: TSH (Collection Date & Time - 03/30/2025 07:09 AM) 6. O thers L AB: VITAMIN D, 25-HYDROXY, LC/MS/MS (Collection Date & Time - 03/30/2025 07:09 AM) L AB: T3, FREE (Collection Date & Time - 03/30/2025 07:09 AM) L AB: URINALYSIS, COMPLETE (Collection Date & Time - 03/30/2025 07:09 AM) L AB: CBC (INCLUDES DIFF/PLT) LC/Q (Collection Date & Time - 03/30/2025 07:09 AM) * Labs: * L ab: COMPREHENSIVE METABOLIC PANEL (Collection Date & Time - 12/04/2024 06:34 AM) L ab: T4, FREE (Collection Date & Time - 03/30/2025 07:09 AM) L ab: TSH (Collection Date & Time - 03/30/2025 07:09 AM) L ab: LIPID PANEL WITH RATIOS (Collection Date & Time - 12/04/2024 06:34 AM) L ab: HEMOGLOBIN A1c (Collection Date & Time - 12/04/2024 06:34 AM) L ab: VITAMIN D, 25-HYDROXY, LC/MS/MS (Collection Date & Time - 03/30/2025 07:09 AM) ?Lab: T3, FREE (Collection Date & Time - 03/30/2025 07:09 AM)* [employer]works, support 03/22 01:42:07 : This order was created by the Interface. ?Lab: CBC (INCLUDES DIFF/PLT) LC/Q (Collection Date & Time - 03/30/2025 07:09 AM)* [employer], support 03/22 01:42:07 : This order was created by the Interface. ?Lab: URINALYSIS, COMPLETE (Collection Date & Time - 03/30/2025 07:09 AM)* [facility], support 03/22 01:42:08 : This order was created by the Interface. * Electronic signature of Darryn Moore MD on 06/23/2025 at 06:10 PM EST Sign off status: Pending * Provider: Elmira Moore MD Date: 0 12/01/2024 Generated for Rayray guzman/Beto/Dorindasmitting on: 1 08/24/2024 06:10 PM EST
--- OUTSIDE RECORDS SUMMARY | 2025-01-06 09:30 | XMS_ITS ---
Author Organization [facility] Address [address] [facility] 200 [place], [place] [phone] Care Team Providers Care Broadband Engineer Name Role Phone Stephen Moore Primary Care Provider REASON FOR VISIT CPE Encounters Encounter Location Date Provider Diagnosis [facility] [address] [place], [place] [phone] 01/06/2025 Stephen Moore Plan Of Treatment Next Appt Details Provider Name:Stephen coronado, 06/25/2025 02:30:00 PM, [address] [facility], [place], [place], [phone], Provider Name:Stephen coronado, 12/15/2025 02:00:00 PM, [address] [facility] [address], [place], [place], [phone], Progress Notes * EL WOOD IIIDOB: [birth year] (69 yo M)Acc No.[id number]:01/06/2025 progress notes Patient: Mamie EL PUENTE III Provider: Elmira Moore MD :1955 A ge:69 Y S ex:Male Date:01/06/2025 Address:[address] [place] [address] Subjective: * Chief Complaints: * C PE Billing Information: * Procedure Codes: * Electronic signature of Darryn Moore MD on 06/23/2025 at 06:10 PM EST Sign off status: Pending * Provider: Elmira Moore MD Date: 0 01/06/2025 Generated for Rayray guzman/Beto/Ganesh on: 1 08/24/2024 06:10 PM EST
--- OUTSIDE RECORDS SUMMARY | 2025-03-03 09:15 | XMS_ITS ---
Author Organization [facility] Address [address] [facility] [address] [place], [place] [id number] Care Team Providers Care Cmo & President Name Role Phone Stephen Moore Primary Care Provider REASON FOR VISIT quest Encounters Encounter Location Date Provider Diagnosis [facility] [address] [id number] 03/03/2025 Stephen Moore Mixed hyperlipidemia E78.2 ; Atrophy of thyroid (acquired) E03.4 ; Gastro-esophageal reflux disease without esophagitis K21.9 ; Vitamin D deficiency, unspecified E55.9 ; Prediabetes R73.03 ; Chronic kidney disease, stage 3a N18.31 and Hypertensive chronic kidney disease with stage 1 through stage 4 chronic kidney disease, or unspecified chronic kidney disease I12.9 Assessments Encounter Date Diagnosis (ICD Code) Assessment Notes Treatment Notes Treatment Clinical Notes Section Notes 03/03/2025 Mixed hyperlipidemia (ICD-10 - E78.2) 03/03/2025 Atrophy of thyroid (acquired) (ICD-10 - E03.4) 03/03/2025 Gastro-esophageal reflux disease without esophagitis (ICD-10 - K21.9) 03/03/2025 Vitamin D deficiency, unspecified (ICD-10 - E55.9) 03/03/2025 Prediabetes (ICD-10 - R73.03) 03/03/2025 Chronic kidney disease, stage 3a (ICD-10 - N18.31) 03/03/2025 Hypertensive chronic kidney disease with stage 1 through stage 4 chronic kidney disease, or unspecified chronic kidney disease (ICD-10 - I12.9) Plan Of Treatment Pending Test Test Name Order Date COMPREHENSIVE METABOLIC PANEL 03/03/2025 VITAMIN D, 25-HYDROXY, LC/MS/MS 03/03/20 LIPID PANEL WITH RATIOS 03/03/2025 T3, FREE 03/03/2025 HEMOGLOBIN A1c 03/03/2025 URINALYSIS, COMPLETE 03/03/2025 CBC (INCLUDES DIFF/PLT) LC/Q 03/03/2025 T4, FREE 03/03/2025 TSH 03/03/2025 Next Appt Details Provider Name:Stephen coronado, 06/25/2025 02:30:00 PM, [address] [facility] [address], [place], [place], [id number], Provider Name:Stephen coronado, 12/15/2025 02:00:00 PM, [address] [facility] [address], [place], [place], [phone], Progress Notes * EL WOOD IIIDOB: [birth year] (69 yo M)Acc No.[id number]:03/03/2025 progress notes Patient: Mamie PUENTEEL III Provider: Elmira Moore MD :[id number] A ge:69 Y S ex:Male Date:03/03/2025 Address:[address] [place], [place] [id number] Subjective: * Chief Complaints: * Q uest Assessment: * Assessment: 1. M ixed hyperlipidemia - E78.2 2 . A trophy of thyroid (acquired) - E03.4? 3. G gardenia-esophageal reflux disease without esophagitis - K21.9 ?4. V itamin D deficiency, unspecified - E55.9 5 . P rediabetes - R73.03 6. C hronic kidney disease, stage 3a - N18.31 7 . H ypertensive chronic kidney disease with stage 1 through stage 4 chronic kidney disease, or unspecified chronic kidney disease - I12.9 Plan: * Treatment: 2. A trophy of thyroid (acquired) L AB: T3, FREE L AB: T4, FREE L AB: TSH 3. G gardenia-esophageal reflux disease without esophagitis L AB: CBC (INCLUDES DIFF/PLT) LC/Q 4. V itamin D deficiency, unspecified L AB: VITAMIN D, 25-HYDROXY, LC/MS/MS 5. P rediabetes L AB: HEMOGLOBIN A1c L AB: URINALYSIS, COMPLETE 6. C hronic kidney disease, stage 3a L AB: COMPREHENSIVE METABOLIC PANEL 7. H ypertensive chronic kidney disease with stage 1 through stage 4 chronic kidney disease, or unspecified chronic kidney disease L AB: COMPREHENSIVE METABOLIC PANEL * Electronic signature of Darryn Moore MD on 06/23/2025 at 06:09 PM EST Sign off status: Pending * Provider: Elmira Moore MD Date: 0 03/03/2025 Generated for Rayray guzman/Beto/Isidraitting on: 1 08/24/2024 06:09 PM EST
--- OUTSIDE RECORDS SUMMARY | 2025-06-11 08:30 | XMS_ITS ---
Author Organization [facility] Address [address] [facility] [address] [place], [place] [id number] Care Team Providers Care Tailer Off Name Role Phone Stephen Moore Primary Care Provider REASON FOR VISIT quest Encounters Encounter Location Date Provider Diagnosis [facility] [place] [address] [phone] 06/11/2025 Stephen Moore Mixed hyperlipidemia E78.2 ; Atrophy [...] Treatment Notes Treatment Clinical Notes Section Notes 06/11/2025 Mixed hyperlipidemia (ICD-10 - E78.2) 06/11/2025 Atrophy of thyroid (acquired) (ICD-10 - E03.4) 06/11/2025 Gastro-esophageal reflux disease without esophagitis (ICD-10 - K21.9) 06/11/2025 Vitamin D deficiency, unspecified (ICD-10 - E55.9) 06/11/2025 Prediabetes (ICD-10 - R73.03) 06/11/2025 Chronic kidney disease, stage 3a (ICD-10 - N18.31) 06/11/2025 Hypertensive chronic kidney disease with stage 1 through stage 4 chronic kidney disease, or unspecified chronic kidney disease (ICD-10 - I12.9) Plan Of Treatment Pending Test Test Name Order Date COMPREHENSIVE METABOLIC PANEL 06/11/2025 VITAMIN D, 25-HYDROXY, LC/MS/MS 06/11/20 LIPID PANEL WITH RATIOS 06/11/2025 T3, FREE 06/11/2025 HEMOGLOBIN A1c 06/11/2025 URINALYSIS, COMPLETE 06/11/2025 CBC (INCLUDES DIFF/PLT) LC/Q 06/11/2025 T4, FREE 06/11/2025 TSH 06/11/2025 Next Appt Details Provider Name:Stephen coronado, 06/25/2025 02:30:00 PM, [address] [facility] [address], [place], [place], [phone], Provider Name:Stephen coronado, 12/15/2025 02:00:00 PM, [address] [facility] [address], [place], [place], [phone], Progress Notes * EL WOOD IIIDOB: [birth year] (69 yo M)Acc No.[id number]:06/11/2025 progress notes Patient: Mamie PUENTEEL III Provider: Elmira Moore MD :1955 A ge:69 Y S ex:Male Date:06/11/2025 Address:[address] [place], [place] [id number] Subjective: * Chief Complaints: * Q uest [...] 5. P rediabetes L AB: HEMOGLOBIN A1c 6. C hronic kidney disease, stage 3a L AB: COMPREHENSIVE METABOLIC PANEL L AB: URINALYSIS, COMPLETE 7. H ypertensive chronic kidney disease with stage 1 through stage 4 chronic kidney disease, or unspecified chronic kidney disease L AB: COMPREHENSIVE METABOLIC PANEL L AB: URINALYSIS, COMPLETE * Electronic signature of Darryn Moore MD on 06/23/2025 at 06:09 PM EST Sign off status: Pending * Provider: Elmira Moore MD Date: 1 08/11/2024 Generated for Rayray guzman/Beto/Isidraitting on: 08/24/2024 06:09 PM EST
--- NOTE | ~2025-06-23 | US_ITS ---
EXAMINATION: US THYROID CLINICAL INFORMATION: Hypothyroidism. COMPARISON: None available. TECHNIQUE: Linear transducer grayscale and color Doppler examination with attention to the region of the thyroid. FINDINGS: SIZE: Measurements of the thyroid lobes and nodules are given in sagittal, anteroposterior and transverse dimensions respectively. Right Thyroid Lobe: 5.2 x 2.8 x 2.3 cm, volume 15.8 mL. (Enlarged) Parenchyma: The gland echotexture is heterogeneous. Thyroid vascularity is normal. Left Thyroid Lobe: 4.7 x 2.8 x 2.2 cm, volume 13.8 mL. (Enlarged) Parenchyma: The gland echotexture is heterogeneous. Thyroid vascularity is normal. Isthmus: 0.7 cm in maximum AP dimension. Estimated total number of nodules greater than or equal to 1 cm: 0. There appears to be a pseudonodule in the midpole of the posterior right thyroid lobe, measuring up to 2.0 cm. This does not appear to represent a true nodule. 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 Location: Right lower pole. Size: 0.5 x 0.3 x 0.5 cm, volume [0.04 mL. Nodule characteristics: Composition: Solid (2). Echogenicity: Hyperechoic (1). Shape: Not taller than wide (0). Margins: Smooth (0). Echogenic Foci: None (0). ACR TI-RADS total points: 3 ACR TI-RADS category: 3 2. Location: Left mid pole. Size: 0.3 x 0.3 x 0.4 cm, volume 0.02 mL. Nodule characteristics: Composition: Solid (2). Echogenicity: Hyperechoic (1). Shape: Not taller than wide (0). Margins: Smooth (0). Echogenic Foci: None (0). ACR TI-RADS total points: 3 ACR TI-RADS category: 3 NODES: No lymphadenopathy is seen in the tissue surrounding the thyroid gland. US/US thyroid IMPRESSION: 1. Enlarged, heterogeneous thyroid keeping with thyroiditis. 2. There are 2 tiny subcentimeter TR category 3 nodules in the right lower pole, and left midpole. No follow-up recommended due to small size. ACR TI-RADS RECOMMENDATION REFERENCE: Ultrasound-guided fine-needle aspiration, followup ultrasound, no further follow up. * TR1 (0 point) and TR2 (2 points): No FNA or follow up. * TR3 (3 points): FNA if more than or equal to 2.5 cm in maximum dimension, followup ultrasound in 1, 3 and 5 years if 1.5 to 2.4 cm in maximum dimension. * TR4 (4-6 points): FNA if more than or equal to 1.5 cm in maximum dimension, followup ultrasound in 1, 2, 3 and 5 years if 1 to 1.4 cm in maximum dimension. * TR5 (more than or equal to 7 points): FNA if more than or equal to 1 cm in maximum dimension, followup ultrasound every year for 5 years if 0.5 to 0.9 cm in maximum dimension. * TR3, TR4 or TR5 nodules that are below the size threshold for followup receive no follow up. Electronically signed by: Nick Linda MD 06/23/2025 04:28 PM [facility] MENDOZA
--- OUTSIDE RECORDS SUMMARY | 2025-06-23 18:09 | XMS_ITS | Patient Health Record ---
Author Organization [facility] Address [address] [place], [place] [id number] Support Name Relationship Address Phone EL WOOD Guarantor Unknown [phone] Reason For Referral No Information Plan Of Treatment No Information Insurance Providers Payer Name Payer Address Payer Phone Subscriber Number Group Number Insured Name Patient Relationship to Insured Coverage Start Date Coverage End Date [facility] [address] [place] [address] [id number] EL WOOD Self - patient is the insured
--- OUTSIDE RECORDS SUMMARY | 2025-06-23 18:09 | XMS_ITS | Patient Health Record ---
Author Organization [facility] Address [address] [place] [address] Care Team Providers Care Software Maintenance Engineer Name Role Phone Stephen Moore Primary Care Provider Unavailab justen HUBBARD ROSSTANIAELBERT Unavailable [phone] MoizDARBY miller APRN Unavailable [phone] Allergies No Known Allergies Reason For Referral [...] Status Risk Notes Problem Chronic pain syndrome (949801950) Chronic pain syndrome (G89.4) Active confirmed Problem Acquired spondylolisthesis (900246308) Spondylolysis, cervical region (M43.02) Active confirmed Problem Cervical spondylosis without myelopathy (147481033) Other spondylosis with radiculopathy, cervical region (M47.22) Active confirmed Problem Cervical radiculopathy (20667403) Cervical disc disorder with radiculopathy, unspecified cervical region (M50.10) Active confirmed Problem Displacement of lumbar intervertebral disc without myelopathy (93913878) Other intervertebral disc displacement, lumbar region (M51.26) Active confirmed Problem Lumbar radiculopathy (614759388) Radiculopathy, lumbar region (M54.16) Active confirmed Problem Cervicalgia (67998618) Cervicalgia (M54.2) Active confirmed Problem Spinal stenosis of lumbar region (23306521) Spinal stenosis, lumbar region without neurogenic claudication (M48.061) Active confirmed Problem Lumbar spondylosis (272304738) Lumbar spondylosis (M47.816) Active confirmed Problem Cervical spondylosis (993106235) Cervical spondylosis (M47.812) Active confirmed Problem Lumbosacral spondylosis without myelopathy (47198600) DJD (degenerative joint disease), lumbosacral (M47.817) Active confirmed Problem Lumbosacral spondylosis without myelopathy (84405711) Spondylosis of lumbosacral spine without myelopathy (M47.817) Active confirmed Problem Trochanteric bursitis of left hip (852406989360682) Trochanteric bursitis of left hip (M70.62) Active [...] Location Date Provider Diagnosis [facility] [address] [place] [address] 08/25/2024 DARBY Moizow DJD (degenerative joint disease), lumbosacral M47.817 ; Cervical spondylosis M47.812 ; Trochanteric bursitis of left hip M70.62 and Chronic pain syndrome G89.4 [facility] [address] [place] [address] [address] [place] [address] 08/26/2024 CHAYAPATHY JOLLU Other spondylosis with radiculopathy, cervical region M47.22 ; Cervical spondylosis M47.812 ; Cervical disc disorder with radiculopathy, unspecified cervical region M50.10 and Cervicalgia M54.2 [facility] [address] [place] [address] [address] [place] [address] 09/29/2024 CHAYAPATHY JOLLU DJD (degenerative joint disease), lumbosacral M47.817 ; Cervical spondylosis M47.812 ; Trochanteric bursitis of left hip M70.62 ; Chronic pain syndrome G89.4 ; Lumbar spondylosis M47.816 and Spondylosis of lumbosacral spine without myelopathy M47.817 [facility] [address] [place] [address] 10/13/2024 CHAYAPATHY JOLLU Facet arthropathy, lumbosacral M47.817 and Lumbar facet arthropathy M47.816 [facility] [address] [place] [address] [address] [place] [address] 10/27/2024 CHAYAPATHY JOLLU Facet arthropathy, lumbosacral M47.817 and Lumbar facet arthropathy M47.816 [facility] [address] [place] [address] [address] [place] [address] 11/18/2024 DARBY Rockafellow DJD (degenerative joint disease), lumbosacral M47.817 ; Lumbar spondylosis M47.816 ; Cervical spondylosis M47.812 ; Trochanteric bursitis of left hip M70.62 ; Chronic pain syndrome G89.4 and Trochanteric bursitis, left hip M70.62 [facility] [address] [place] [address] [address] [place] [address] 11/25/2024 CHAYAPATHY JOLLU Cervicalgia M54.2 an d Cervical spondylosis M47.812 [facility] [address] [place] [address] [address] [place] [address] 12/09/2024 CHAYAPATHY JOLLU Facet arthropathy, lumbosacral M47.817 and Lumbar facet arthropathy M47.816 [facility] [address] [place] [address] [address] [place] [address] 01/25/2025 CHAYAPATHY JOLLU Lumbar spondylosis M47.816 ; Lumbar disc disease with radiculopathy M51.16 ; DJD (degenerative joint disease), lumbosacral M47.817 ; Cervical spondylosis M47.812 ; Trochanteric bursitis of left hip M70.62 ; Chronic pain syndrome G89.4 and Trochanteric bursitis, left hip M70.62 [facility] [address] [place] [address] [address] [place] [address] 02/01/2025 CHAYAPATHY JOLLU Radiculopathy, lumba r region M54.16 and Other intervertebral disc displacement, lumbar region M51.26 [facility] [address] [place] [address] [address] [place] [address] 03/29/2025 [facility] Lumbar spondylosis M47.816 ; Lumbar disc disease with radiculopathy M51.16 ; DJD (degenerative joint disease), lumbosacral M47.817 ; Cervical spondylosis M47.812 ; Trochanteric bursitis of left hip M70.62 ; Chronic pain syndrome G89.4 and Trochanteric bursitis, left hip M70.62 [facility] [address] [place] [address] [address] [place] [address] 12/17/2024 CHAYAPATHY JOLLU [facility] [address] [place] [address] [address] [place] [address] 11/24/2024 ROSSYAPATHY HAYDEE [facility] [address] [place] [address] 12/21/2024 ROSSYAPATHY HAYDEE [facility] [address] [place] [address] 03/29/2025 ROSSYAPATHY HAYDEE Assessments Encounter Date Diagnosis [...] - M51.16) [facility] Will be seeing Spine Surgeon at [facility] Saturday at 1045am L4/5 Lumbar DEBORAH: 02/01/2025 [...] [employer] [place] [employer] [address] [address] [place], [place] [phone] [id number] Santhosh Yo Self - patient is the insured [facility] [address] [place] [address] [phone] [id number] Santhosh Yo Self - patient is the insured Medical (General) History Medical History History ICD Code DJD HTN HLD Depression Hypothyroid Foot Drop Surgical History Surgery Date(Month/Year) Arthroscopy of Right shoulder & right kn ee, sinus
--- OUTSIDE RECORDS SUMMARY | 2025-06-23 18:09 | XMS_ITS | Encounter Summary ---
Author Organization [facility] Address [address] [place] [address] Care Team Providers Care Encapsulator Name Role Phone Stephen Moore MD Primary Care Provider [phone] Reason for Referral * Radiology Services - New Request Specialty Diagnoses / Procedures Referred By Contac t Referred To Contact Procedures XR Spine/Sports Interventional Samuel Mccain MD [address] [address] [place] [address] Phone: tel: fax: Referral ID Status Reason Start Date Expiration Date V isits Requested Visits Authorized [id number] New Request 05/06/2025 05/06/2026 1 1 Encounter Details Date Type Department Care Team (Latest Contact Info) Description 05/06/2025 Prep For Surgery [facility] Physical Medicine and Rehabilitation - [facility] [address] [place] [phone] Samuel Mccain MD [address] [id number] [place], [place] [id number] Lumbar facet arthropathy Social History Tobacco Use [...] were you homeless or living in a chcf (including now)? No 04/21/2025 Utilities Answer Date [...] Description 06/28/2025 11:00 AM EST Office Visit [facility] Orthopedics and Sports Medicine - [place] [address], [facility] [address] [place] [address] Endy Armendariz MD [address] [place] [address] Scheduled Orders Name Type Priority [...] myelopathy documented in this encounter Care Teams Encapsulator Relationship Specialty Start Date End Date Stephen Moore MD [address] [facility] [address] [facility] [place] [address] PCP - General Family Medicine 04/14/25 documented as of this encounter
--- OUTSIDE RECORDS SUMMARY | 2025-06-23 18:10 | XMS_ITS | Clinical Summary ---
Author Organization [facility] Address [address] [place] [address] Care Team Providers Care Child Care Name Role Phone Stephen Moore MD Primary Care Provider [phone] Allergies No known active allergies Medications valsartan-hydro [...] Surgery [facility] [address] [place] [address] Samuel Mccain MD Medial Branch Block Lumbar/Sacral 1st & 2nd level 05/26/2025 10:33 AM EST - 05/26/2025 12:27 PM EST Hospital Encounter [facility] [address] [place] [address] Samuel Mccain MD Discharge Disposition: Discharge to Home or Self Care 05/26/2025 7:16 AM EST - 05/26/2025 11:59 PM EST Hospital Encounter [facility] -- Fluoroscopy [address] [place] [address] Samuel Mccain MD Discharge Disposition: Discharge to Home or Self Care 05/07/2025 Telephone [facility] Physical Medicine and Rehabilitation - [facility] [address] [place] [phone] Samuel Mccain MD Appointment 05/06/2025 Prep For Surgery [facility] Physical Medicine and Rehabilitation - [place] [phone] Samuel Mccain MD Lumbar facet arthropathy 05/06/2025 Orders Only [facility] Physical Medicine and Rehabilitation - [place] [phone] Samuel Mccain MD 04/29/2025 Telephone [facility] Orthopedics and Sports Medicine - [place] [address], [address] [place] [phone] Endy Armendariz MD Patient Call 04/29/2025 Telephone [facility] Physical Medicine and Rehabilitation - [facility] [address] [place], [place] [phone] Samuel Mccain MD Patient Call; Clinical or Medication Question/Inquiry 04/26/2025 Telephone [facility] Orthopedics and Sports Medicine - [address] [place] [phone] Endy Armendariz MD Medical Question/Inquiry 04/21/2025 2:30 PM EDT - 04/21/2025 3:00 PM EDT Surgery [facility] [address] [place] [address] Samuel Mccain MD Transforaminal - Lumbar or Sacral multiple levels 04/21/2025 1:34 PM EDT - 04/21/2025 3:44 PM EDT Hospital Encounter [facility] Med & Rehab [address] [place] [phone] Samuel Mccain MD Discharge Disposition: Discharge to Home or Self Care 04/21/2025 6:40 AM EDT - 04/21/2025 11:59 PM EDT Hospital Encounter [facility] -- Fluoroscopy [address] [place] [phone] Samuel Mccain MD Discharge Disposition: Discharge to Home or Self Care 04/20/2025 10:00 AM EDT Office Visit [facility] Physical Medicine and Rehabilitation - [facility] [address] [place] [phone] Endy Armendariz MD Guju, Michael M., MD Lumbar facet arthropathy 04/19/2025 10:00 AM EDT Office Visit [facility] Orthopedics and Sports Medicine [address], [address] [place] [address] Endy Armendariz MD Foraminal stenosis of lumbar region; Lumbar radiculopathy - Left L3 and left L4; Facet arthritis of lumbar region; Chronic back pain greater than 3 months duration 04/15/2025 2:05 PM EDT - 04/15/2025 11:59 PM EDT Hospital Encounter [facility] - RADIOLOGY - MRI [address] [place] [address] Endy Armendariz MD Lumbar spondylosis; Left buttock pain; Facet arthropathy Discharge Disposition: Discharge to Home or Self Care 04/02/2025 11:00 AM EDT Ancillary Procedure [facility] Radiology - [address], [address] [place] [address] Endy Amrendariz MD Lumbar spondylosis 04/02/2025 10:45 AM EDT Office Visit [facility] Orthopedics and Sports Medicine [address], [address] [place] [address] Endy Armendariz MD Lumbar spondylosis; [...] any time in the past 12 m [facility], were you homeless or living in a retirement (including now)? No 05/26/2025 Utilities Answer Date [...] 11:00 AM EST Office Visit [facility] Medical [facility] Orthopedics and Sports Medicine - [place] [address], [address] [place] [address] Endy Armendariz MD [address] [place] [address] Health Maintenance Due Date Last Done Comments [...] INTERVENTIONAL PAIN Routine 05/26/2025 12:[address] INJ DX/THER AGNT PARAVERT FACET JOINT, LUMBAR/SAC, 2ND LEVEL 05/26/2025 11:30 AM EST Lumbar facet arthropathy CT INJ DX/THER AGNT PARAVERT FACET JOINT, LUMBAR/SAC, 1ST LEVEL 05/26/2025 11:30 AM EST Lumbar facet arthropathy FLUORO SPINE/SPORTS INTERVENTIONAL PAIN Routine 04/21/2025 3:[address] INJECT ANES/STEROID FORAMEN LUMBAR/SACRAL W IMG GUIDE ,EA ADD LEVEL 04/21/2025 2:30 PM EDT Lumbar radiculopathy CT INJECT ANES/STEROID FORAMEN LUMBAR/SACRAL W IMG GUIDE ,1 LEVEL 04/21/2025 2:30 PM EDT Lumbar radiculopathy MRI SPINE LUMBAR W/O CONTRAST Routine 04/15/2025 2:45 PM EDT Lumbar spondylosis Left buttock pain Facet arthropathy from Last 3 Months Results * Fluoro Spine/Sports Interventional Pain (05/26/2025 12:04 PM EST) Only the most recent of2 resultswithin the time period is included. Impressions RADIOLOGY [facility] - 05/26/2025 3:21 PM EST THIS ORDER IS FOR FLUORO TIME ONLY. THERE IS NO DICTATION. Narrative RADIOLOGY [facility] - 05/26/2025 3:21 PM EST THIS ORDER [...] Months Insurance MEDICARE PART A AND B [facility] Care Teams Child Care Relationship Specialty Start Date End Date Stephen Moore MD [address] [facility] [place] [address] PCP - General Family Medicine 04/14/25
== END 2025-06-23 15:06 | disposition home or self-care (01) ==
LOC: HO.US 15:05
PROVIDERS: Visit Provider Internal Medicine Endocrinology, Diabetes & Metabolism
DX: E03.9 Hypothyroidism, unspecified (principal)
CPT/HCPCS: 76536

== ENCOUNTER → 2025-06-23 15:13 | Outpatient (BNV) | payer MEDICARE, OTHER, SELFPAY | PROVIDERS: Visit Provider Radiology Diagnostic Radiology | DX: E04.2 Nontoxic multinodular goiter (principal); E07.89 Other specified disorders of thyroid | CPT/HCPCS: 76536 ==